=== PATIENT | female | born 1950 | race Caucasian/White ===

== ENCOUNTER 2016-09-17 20:06 | Inpatient (IN) ==
[2016-09-17] MEDS ORDERED: *HR* Morphine 2 MG/ML SYRINGE IVP ONE ×2 (20:27→22:30)
[2016-09-17] MEDS ORDERED: Ondansetron 4 MG/2 ML VIAL IVP ONE ×2 (20:27→22:30)
--- NOTE | 2016-09-17 20:28 | Emergency Department Note ---
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 She has had some nausea but no vomiting she had marked decrease in her by mouth intake the last several days. She had 1 prior episode of bowel obstruction several years ago that was treated with being nothing by mouth and fluids Pt Subjective Complaint: abdominal pain Onset (ago): day(s) (3) Consistency: intermittent Location: diffuse Pain Severity: moderate Pain Scale: 8 Quality: stabbing, sharp Improves with: nothing Worsens with: nothing Associated symptoms: Reports: nausea. Denies: fever, chills Treatments prior to arrival: none - Related Data Home Medications Medication Instructions Recorded Confirmed Amitiza 12/27/14 12/27/14 Effexor 12/27/14 12/27/14 Gabapentin 12/27/14 12/27/14 MiraLAX 12/27/14 12/27/14 Viola 5-325 Tablet QID 12/27/14 12/27/14 Prevacid 12/27/14 12/27/14 Singulair 12/27/14 12/27/14 Synthroid 12/27/14 12/27/14 Voltaren 12/27/14 12/27/14 Previous Rx's Medication Instructions Recorded OxyCODONE/APAP 7.5/325 [Percocet 1 each PO Q6HR PRN #12 tablet 12/27/14 7.5/325] Metoclopramide [Reglan] 10 mg PO Q6HR #90 tablet 03/08/15 Allergies Allergy/AdvReac Type Severity Reaction Status Date / Time ciprofloxacin [From Cipro] AdvReac Rash Verified 03/05/15 12:08 All systems ED: reviewed and negative except as stated. Constitutional: Denies: fever Respiratory: Denies: dyspnea Abdominal Pain PMH - Past Medical History Medical history: Reports: kidney stones, other Female Surgical History: Reports: other Psychiatric history: Reports: anxiety - Social History Smoking status: Never smoker Alcohol use: Reports: occasionally Drug use: Reports: none Physical Exam - General Limitations: no limitations General appearance: alert, in no apparent distress - Head Head exam: atraumatic, normocephalic, normal inspection - Eye Eye exam: Present: normal appearance, PERRL, EOMI - Expanded Eye Exam Pupils: Left: reactive - ENT ENT exam: normal exam, normal oropharynx, mucous membranes moist - Expanded ENT Exam External ear exam: Present: normal external inspection Mouth exam: Present: normal external inspection Teeth exam: Present: normal inspection Throat exam: Present: normal inspection - Neck Neck exam: Present: normal inspection, full ROM, trachea midline - Chest Chest inspection: Present: normal inspection, symmetric chest wall rise - Respiratory Respiratory exam: Present: normal lung sounds bilaterally - Cardiovascular Cardiovascular exam: Present: regular rate, normal rhythm, normal heart sounds - Abdominal Exam Abdominal exam: Present: distention, guarding, normal bowel sounds Abdominal tenderness: Present: diffuse, moderate - Rectal Exam Bariatric Surgeon present during exam: Yes Rectal exam: Present: normal inspection, normal rectal tone. Absent: bloody stool, fecal impaction, hemorrhoids - Extremities Exam Extremities exam: Present: normal inspection, full ROM. Absent: tenderness, pedal edema - Expanded Upper Extremity Exam Shoulder exam: Present: normal inspection, full ROM Arm exam: Present: normal inspection, full ROM Elbow exam: Present: normal inspection, full ROM Forearm/Wrist exam: Present: normal inspection, full ROM Hand exam: Present: normal inspection, full ROM Vascular exam: Normal: capillary refill, radial pulse - Expanded Lower Extremity Exam Hip/Pelvis exam: Present: normal inspection, full ROM Upper leg exam: Present: normal inspection, full ROM Knee exam: Present: normal inspection, full ROM Lower leg exam: Present: normal inspection, full ROM Ankle exam: Present: normal inspection, full ROM Foot/toe exam: Present: normal inspection, full ROM Neurovascular/Tendon exam: Absent: motor deficit, sensory deficit, tendon deficit - Back Exam Back exam: Present: normal inspection, full ROM. Absent: tenderness - Neurological Exam Neurological exam: Present: alert, oriented X3 - Expanded Neurological Exam Patient oriented to: Present: person, place, time Coma Scale Eye Opening: Spontaneous Coma Scale Motor Response: Obeys Commands Coma Scale Verbal Response: Oriented Coma Scale Total: 15 - Psychiatric Psychiatric exam: Present: normal affect, normal mood - Skin Skin exam: Present: warm, dry, intact, normal color Course - Consultations Consultation #1: recommends nothing by mouth, IV fluids analgesia and antiemetics NG tube only if patient starts actively vomiting pill C the patient consultation and admitted to the hospitalist service Time: 21:43 Vital Signs Temperature 98.3 F 09/17/16 20:07 Pulse Rate 122 09/17/16 20:07 Respiratory Rate 18 09/17/16 20:07 Blood Pressure 140/82 09/17/16 20:07 O2 Sat by Pulse Oximetry 95 09/17/16 20:07 Temperature 98.3 F 09/17/16 20:07 Pulse Rate 106 09/17/16 21:01 Respiratory Rate 20 09/17/16 21:01 Blood Pressure 108/76 09/17/16 21:01 O2 Sat by Pulse Oximetry 95 09/17/16 21:01 Oxygen Delivery Oxygen Delivery Room Air Abdominal Pain - Differential Diagnosis Differential Diagnosis: Likely: calculus of kidney, constipation, diverticulitis , gastroenteritis, small bowel obstruction - Medical Records Medical records reviewed: Yes I reviewed the patient's medical records. - Lab Data Result diagrams: 09/17/16 20:48 09/17/16 20:48 Lab Results 09/17/16 09/17/16 09/17/16 Range/Units 20:48 20:48 20:48 WBC 5.5 (4.3-11.1) K/mcL RBC 5.36 H (3.82-4.97) M/mcL Hgb 11.8 (11.5-15.4) g/dL Hct 39.0 (35.3-44.9) % MCV 72.8 L (83.0-100.0) fL MCH 22.0 L (28.0-33.3) pg MCHC 30.3 L (31.6-35.5) g/dL RDW 16.0 H (11.5-14.5) % Plt Count 345 (140-400) K/mcL MPV 9.1 L (9.4-12.4) fL Immature Gran % 0.2 (0-4) % Seg Neutrophils % 71.9 % Lymphocytes % 11.4 % Monocytes % 14.1 % Eosinophils % 2.0 % Basophils % 0.4 % Neutrophils # 4.0 (1.6-8.9) K/mcL Lymphocytes # 0.6 (0.6-4.6) K/mcL Monocytes # 0.8 (0.0-1.3) K/mcL Eosinophils # 0.1 (0.0-0.6) K/mcL Basophils # 0.0 (0.0-0.2) K/mcL Platelet Estimate Normal (Normal) PT 13.7 H (9.4-12.1) Seconds INR 1.3 Sodium 139 (136-145) mEq/L Potassium 3.8 (3.5-4.5) mEq/L Chloride 101 (98-109) mEq/L Carbon Dioxide 23 (19-29) mEq/L BUN 13 (7-20) mg/dL Creatinine 0.85 (0.57-1.11) mg/dL Est GFR ( Amer) > 60 (> 60) Est GFR (Non-Af Amer) > 60 (> 60) BUN/Creatinine Ratio 15 (6-26) Glucose 133 H (70-99) mg/dL Calculated Osmolality 290 (280-300) Lactic Acid (0.5-2.2) mmol/L Calcium 9.8 (8.6-10.8) mg/dL Total Bilirubin (0.2-1.2) mg/dL Direct Bilirubin (0.0-0.5) mg/dL Indirect Bilirubin (0.0-1.2) mg/dL AST (5-34) Units/L ALT (0-55) Units/L Alkaline Phosphatase (38-126) Units/L Serum Total Protein (6.0-8.3) g/dL Albumin (3.5-5.0) g/dL Globulin (2.4-3.5) g/dL Albumin/Globulin Ratio (1.1-2.2) Lipase (8-78) Units/L 09/17/16 09/17/16 Range/Units 20:48 20:48 WBC (4.3-11.1) K/mcL RBC (3.82-4.97) M/mcL Hgb (11.5-15.4) g/dL Hct (35.3-44.9) % MCV (83.0-100.0) fL MCH (28.0-33.3) pg MCHC (31.6-35.5) g/dL RDW (11.5-14.5) % Plt Count (140-400) K/mcL MPV (9.4-12.4) fL Immature Gran % (0-4) % Seg Neutrophils % % Lymphocytes % % Monocytes % % Eosinophils % % Basophils % % Neutrophils # (1.6-8.9) K/mcL Lymphocytes # (0.6-4.6) K/mcL Monocytes # (0.0-1.3) K/mcL Eosinophils # (0.0-0.6) K/mcL Basophils # (0.0-0.2) K/mcL Platelet Estimate (Normal) PT (9.4-12.1) Seconds INR Sodium (136-145) mEq/L Potassium (3.5-4.5) mEq/L Chloride (98-109) mEq/L Carbon Dioxide (19-29) mEq/L BUN (7-20) mg/dL Creatinine (0.57-1.11) mg/dL Est GFR ( Amer) (> 60) Est GFR (Non-Af Amer) (> 60) BUN/Creatinine Ratio (6-26) Glucose (70-99) mg/dL Calculated Osmolality (280-300) Lactic Acid 2.9 H (0.5-2.2) mmol/L Calcium (8.6-10.8) mg/dL Total Bilirubin 0.8 (0.2-1.2) mg/dL Direct Bilirubin 0.4 (0.0-0.5) mg/dL Indirect Bilirubin 0.4 (0.0-1.2) mg/dL AST 16 (5-34) Units/L ALT 14 (0-55) Units/L Alkaline Phosphatase 123 (38-126) Units/L Serum Total Protein 7.5 (6.0-8.3) g/dL Albumin 3.7 (3.5-5.0) g/dL Globulin 3.8 H (2.4-3.5) g/dL Albumin/Globulin Ratio 1.0 L (1.1-2.2) Lipase 11 (8-78) Units/L - Radiology Data Radiology results reviewed: Yes I reviewed the patient's radiology results.
[2016-09-17 20:55] LABS: Basophils % 0.4 %; Eosinophils # 0.1 K/mcL (0.0-0.6); Hemoglobin 11.8 g/dL (11.5-15.4); Immature Granulocytes % 0.2 % (0-4); Lymphocytes # 0.6 K/mcL (0.6-4.6); Lymphocytes % 11.4 %; Mean Corpuscular HGB Conc 30.3 g/dL (31.6-35.5); Mean Corpuscular Volume 72.8 fL (83.0-100.0); Mean Platelet Volume 9.1 fL (9.4-12.4); Monocytes # 0.8 K/mcL (0.0-1.3); Monocytes % 14.1 %; Platelet Count 345 K/mcL (140-400); Red Blood Count 5.36 M/mcL (3.82-4.97); Segmented Neutrophils % 71.9 %
[2016-09-17 21:00] LABS: INR 1.3; Prothrombin Time 13.7 Seconds (9.4-12.1)
[2016-09-17 21:07] LABS: BUN/Creatinine Ratio 15 (6-26); Blood Urea Nitrogen 13 mg/dL (7-20); Calcium 9.8 mg/dL (8.6-10.8); Carbon Dioxide 23 mEq/L (19-29); Chloride 101 mEq/L (98-109); Glucose 133 mg/dL (70-99); Osmolality,Calculated 290 (280-300); Potassium 3.8 mEq/L (3.5-4.5); Sodium 139 mEq/L (136-145); eGFR For African Americans > 60 (> 60); eGFR For Non-African Americans > 60 (> 60)
[2016-09-17 21:10] LABS: Albumin 3.7 g/dL (3.5-5.0); Bilirubin,Direct 0.4 mg/dL (0.0-0.5); Bilirubin,Indirect 0.4 mg/dL (0.0-1.2); Bilirubin,Total 0.8 mg/dL (0.2-1.2); Globulin 3.8 g/dL (2.4-3.5); Total Protein 7.5 g/dL (6.0-8.3)
[2016-09-17 21:18] LABS: Platelet Estimate Normal (Normal)
[2016-09-17] MEDS ORDERED: 0.9 % Sodium Chloride 1,000 ML IVC ONE (21:36)
[2016-09-17] MEDS ORDERED: Acetaminophen 325 MG TABLET PO PRN (22:40)
[2016-09-17] MEDS ORDERED: Naloxone 0.4 MG/ML INJ IVP PRN (22:40)
[2016-09-17] MEDS ORDERED: *HR* Morphine 2 MG/ML SYRINGE ONE (22:52)
[2016-09-17] MEDS ORDERED: Ondansetron 4 MG/2 ML VIAL ONE (22:53)
--- NOTE | 2016-09-17 23:36 | Internal Med History&Physical ---
Date of Encounter: 09/17/16 Time of Encounter: 23:00 Assessment and Plan (1) Small bowel obstruction Current visit: Yes Status: Acute Patient has a history of prior bowel surgeries 2. She also has a history of hysterotomy. She has a history of small bowel obstruction in the past which resolved after 4 days with conservative management. She presents with sudden onset about pain that started Friday with absence of bowel movements, nausea. Exam reveals absence of bowel sounds and tenderness to palpation without rebound tenderness. CT scan reveals small bowel obstruction with possible twisting of the mesentery. Surgery was consulted by the ER and it was recommended that the patient be admitted with conservative management. Patient will be admitted to inpatient status. Expected to be in the hospital at least overnight. Expected discharge disposition is to home. High risk due to possible need for surgical intervention if the patient fails conservative management. Nothing by mouth. Intravenous fluids. Intravenous proton pump inhibitors. Pain control. We will follow up surgery consult and recommendations. Internal Medicine - H&P: HPI Chief complaint: Abdominal pain Admitted From: Emergency Dept Plans for Post Hospital Care: Home History of present illness: Ms. 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 Patient states that she had sudden onset abdominal pain on Friday of for about 10/10 in intensity in the lower abdomen in the midline which was cramping and squeezing in nature without any radiation. The pain was intermittent. No aggravating or relieving factors. She has not had a bowel movement since Friday. Pain is associated with nausea but no vomiting. She states that she usually does not pass gas. Hence, she presented to the emergency department. Currently, she rates her pain as 5/10 in intensity after receiving morphine in the emergency department. She reports feeling lightheaded when she gets up and walks. She denies any chest pain, palpitations, cough or wheezing. She denies any fevers although she reports some chills. She denies any swelling of her lower extremities, urinary symptoms or recent weight changes. She states that she usually moves her bowels about 5-6 times daily as she does not have a colon. She states that she usually consumes MiraLAX. She states that she had small bowel obstruction one year ago. Hence, when the pain started on Friday, she stopped taking any food but was only taking MiraLAX to try to move her bowels. Past Med Surg Social Fam HX - Past Medical History Attestation: Yes The following information was validated with the patient. Source: patient Medical history: GERD, kidney stones Psychiatric history: anxiety - Past Surgical History Surgical History: colectomy, hip replacement, hysterectomy, other (shoulder surgery; Small intestine surgery) - Social History Smoking Status: Never smoker Smokeless Tobacco Status: No Alcohol use: occasionally Drug use: none Occupational status: employed Current living situation: Home, With Family Activity Level: Independent ambulation Recent Out of Country Travel Within the Last 8 Weeks: No Exposure or Possible Exposure to Illness During Travel: No - Family History Mother Living Status: Hx Family GI Disorders: No Hx Family Autoimmune Disorders: No Father Hx Family GI Disorders: No Hx Family Endocrine Disorder: No Internal Medicine - H&P: Meds Albuterol Sulfate [Albuterol Inhaler] 2 puff IH Q4H PRN 09/17/16 [History] Diclofenac Sodium [Voltaren] 75 mg PO BID 09/17/16 [History] Gabapentin [Neurontin] 300 mg PO TID 09/17/16 [History] Hyoscyamine SL [Levsin SL] 0.125 mg SL TID PRN 09/17/16 [History] Lansoprazole [Prevacid] 30 mg PO DAILY 09/17/16 [History] Levothyroxine [Synthroid] 112 mcg PO 30 09/17/16 [History] Lidocaine Patch [Lidoderm 5% patch] 1 each TP DAILY PRN 09/17/16 [History] Lubiprostone [Amitiza] 8 mcg PO BID 09/17/16 [History] Montelukast [Singulair] 10 mg PO HS 09/17/16 [History] OxyCODONE/APAP 7.5/325 [Percocet 7.5/325 MG] 1 tab PO Q6H PRN 09/17/16 [History] Polyethylene Glycol 3350 [Smoothlax] 17 gm PO BID PRN 09/17/16 [History] Rifaximin [Xifaxan] 550 mg PO BID 09/17/16 [History] Venlafaxine XR (24 HR) [Effexor Xr] 37.5 mg PO DAILY 09/17/16 [History] Allergies ciprofloxacin [From Cipro] Adverse Reaction (Verified 03/05/15 12:08) Rash All Systems PM: A 10-system review of systems was performed and is negative for pertinent findings except as documented above in the HPI. Review of systems: 10 systems have been reviewed and are negative except as mentioned in the history of present illness - Constitutional Vitals: Temp Pulse Resp BP Pulse Ox 98.3 F 97 20 133/94 94 09/17/16 20:07 09/17/16 22:45 09/17/16 22:45 09/17/16 22:45 09/17/16 22:45 Exam: Gen.: Lying in bed. Mild to moderate distress. Eyes: Pupils equal, round and reactive to light. Extraocular muscles intact. ENT: Moist mucous membranes. No oropharyngeal erythema or discharge. Chest: Clear to auscultation bilaterally. No adventitious sounds present. CVS: First and second heart sounds present. No murmurs, rubs or gallops. Mild tachycardia present. Abdomen: Soft, tenderness to palpation in the hypogastric and left lumbar regions without rebound tenderness, guarding or rigidity; obese. Bowel sounds absent. No hepatosplenomegaly. Skin: No decubitus ulcers appreciated. 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 Psychiatric: Alert, awake and oriented to time, place and person. Lymphatic system: No lymphadenopathy appreciated Internal Med - H&P Results - Labs CBC & Chem 7: 09/17/16 20:48 09/17/16 20:48 - Diagnostic Studies CT scan - abdomen Status: image reviewed by me
[2016-09-17] MEDS ORDERED: Potassium Chloride 10 MEQ in D5% in 0.9% NACL 1,000 ML IVC SCH (23:45)
[2016-09-18] MEDS: *HR* Heparin 5,000 UNIT/ML VIAL SQ SCH ×3 (00:37→16:36)
[2016-09-18] MEDS: *HR* Morphine 2 MG/ML SYRINGE IVP PRN ×4 (02:09→16:57)
[2016-09-18 06:03] LABS: Eosinophils # 0.1 K/mcL (0.0-0.6); Hematocrit 33.6 % (35.3-44.9); Lymphocytes # 0.8 K/mcL (0.6-4.6); Mean Corpuscular HGB Conc 29.8 g/dL (31.6-35.5); Mean Corpuscular Hemoglobin 21.9 pg (28.0-33.3); Mean Corpuscular Volume 73.7 fL (83.0-100.0); Mean Platelet Volume 9.3 fL (9.4-12.4); Nucleated Red Blood Cells 0.7 /100 WBC (0); Platelet Count 283 K/mcL (140-400); Red Blood Count 4.56 M/mcL (3.82-4.97); Red Cell Distribution Width 16.1 % (11.5-14.5)
[2016-09-18 06:12] LABS: % Iron Saturation 7 % (15-50); BUN/Creatinine Ratio 14 (6-26); Blood Urea Nitrogen 11 mg/dL (7-20); Calcium 8.7 mg/dL (8.6-10.8); Carbon Dioxide 25 mEq/L (19-29); Chloride 107 mEq/L (98-109); Glucose 113 mg/dL (70-99); Iron 33 mcg/dL (50-170); Osmolality,Calculated 290 (280-300); Potassium 4.1 mEq/L (3.5-4.5); Sodium 140 mEq/L (136-145); Transferrin 354 mg/dL (180-382); eGFR For African Americans > 60 (> 60); eGFR For Non-African Americans > 60 (> 60)
[2016-09-18 06:23] LABS: Anisocytosis 1+ (Not Present); Microcytosis Present (Not Present); Monocytes # 0.6 K/mcL (0.0-1.3); Neutrophils # 2.7 K/mcL (1.6-8.9); Platelet Estimate Normal (Normal); Reactive Lymphocytes Present (Not Present)
[2016-09-18 06:36] LABS: Ferritin 106 ng/ml (5-204)
--- NOTE | 2016-09-18 08:19 | General Surgery Progress Note ---
Date of Encounter: 09/18/16 - Assessment and Plan (1) Small bowel obstruction Current Visit: Yes Status: Acute Multiple abdominal surgeries and history of small bowel obstructions in the past. Patient had been treating herself conservatively at home over the past 4 days drinking water and taking only a few bites of pudding a day. Patient has had multiple voluminous bowel movements today for bowel movements just prior to physical examination. Patient then got up to have another bowel movement. Patient denies nausea or vomiting. She does have active bowel sounds. Patient states that she does not have gas passage due to her Hirschsprung's disease gas only comes out when she stools this is her normal function. Abdomen/Pelvis CT 09/17/16 20:19 IMPRESSION: Findings compatible with small-bowel obstruction likely secondary to adhesions of the anastomotic site with associated twisting of the mesentery. Recommend surgical consultation. No acute abnormality otherwise noted. Plan: Partial SBO Clears today will advance as patient tolerates IV fluids at [75] mL per hour Supportive care and pain control Incentive spirometer every 1 hour while awake PPI therapy Surgery will follow along. Advance diet as tolerated. The assessment and plan as outlined above was discussed with the patient and/or family members who expressed understanding and agreement. All questions were answered. Objective Vital Signs - Last 8 Hours Temp Pulse Resp BP Pulse Ox 09/18/16 07:12 99.4 F 103 20 117/71 94 09/18/16 03:22 98.7 F 100 15 121/75 93 09/18/16 00:31 98.1 F 94 15 124/75 93 Intake and Output 09/17/16 09/18/16 09/18/16 23:59 07:59 15:59 Output Total 100 / 100 Balance -100 / -100 Output: Urine 100 / 100 Other: Stool Size Copious Stool Consistency liquid Stool Color Brown Yellow Green Pale # Voids 1 # Bowel Movements 1 Weight 93.3 kg Blood Glucose* 103 Patient Weight 09/18/16 23:59 Weight 93.3 kg - Labs 09/18/16 05:46 09/18/16 05:46 Diabetes panel 09/18/16 Range/Units 05:46 Sodium 140 (136-145) mEq/L Potassium 4.1 (3.5-4.5) mEq/L Chloride 107 (98-109) mEq/L Carbon Dioxide 25 (19-29) mEq/L BUN 11 (7-20) mg/dL Creatinine 0.77 (0.57-1.11) mg/dL Glucose 113 H (70-99) mg/dL Calcium 8.7 (8.6-10.8) mg/dL Calcium panel 09/18/16 Range/Units 05:46 Calcium 8.7 (8.6-10.8) mg/dL Pituitary panel 09/18/16 Range/Units 05:46 Sodium 140 (136-145) mEq/L Potassium 4.1 (3.5-4.5) mEq/L Chloride 107 (98-109) mEq/L Carbon Dioxide 25 (19-29) mEq/L BUN 11 (7-20) mg/dL Creatinine 0.77 (0.57-1.11) mg/dL Glucose 113 H (70-99) mg/dL Calcium 8.7 (8.6-10.8) mg/dL Adrenal panel 09/18/16 Range/Units 05:46 Sodium 140 (136-145) mEq/L Potassium 4.1 (3.5-4.5) mEq/L Chloride 107 (98-109) mEq/L Carbon Dioxide 25 (19-29) mEq/L BUN 11 (7-20) mg/dL Creatinine 0.77 (0.57-1.11) mg/dL Glucose 113 H (70-99) mg/dL Calcium 8.7 (8.6-10.8) mg/dL Consult Discharge Plan - Plan Referrals: Ortega Elias Jr, MD [Primary Care Provider] -
[2016-09-18] MEDS: Pantoprazole 40 MG VIAL IVP SCH (08:37)
--- NOTE | 2016-09-18 09:40 | General Surgery Consult Note ---
<RogerRehanAleksander M - Last Filed: 09/18/16 12:42> Date of Encounter: 09/18/16 Medications and Allergies Albuterol Sulfate [Albuterol Inhaler] 2 puff IH Q4H PRN 09/17/16 [History] Diclofenac Sodium [Voltaren] 75 mg PO BID 09/17/16 [History] Gabapentin [Neurontin] 300 mg PO TID 09/17/16 [History] Hyoscyamine SL [Levsin SL] 0.125 mg SL TID PRN 09/17/16 [History] Lansoprazole [Prevacid] 30 mg PO DAILY 09/17/16 [History] Levothyroxine [Synthroid] 112 mcg PO 0630 09/17/16 [History] Lidocaine Patch [Lidoderm 5% patch] 1 each TP DAILY PRN 09/17/16 [History] Lubiprostone [Amitiza] 8 mcg PO BID 09/17/16 [History] Montelukast [Singulair] 10 mg PO HS 09/17/16 [History] OxyCODONE/APAP 7.5/325 [Percocet 7.5/325 MG] 1 tab PO Q6H PRN 09/17/16 [History] Polyethylene Glycol 3350 [Smoothlax] 17 gm PO BID PRN 09/17/16 [History] Rifaximin [Xifaxan] 550 mg PO BID 09/17/16 [History] Venlafaxine XR (24 HR) [Effexor Xr] 37.5 mg PO DAILY 09/17/16 [History] Allergies ciprofloxacin [From Cipro] Adverse Reaction (Verified 03/05/15 12:08) Rash Review of Systems All systems PM: A 10-system review of systems was performed and is negative for pertinent findings except as documented above in the HPI. General Surgery Exam Initial Vital Signs Temp Pulse Resp BP Pulse Ox 98.3 F 122 18 140/82 95 09/17/16 20:07 09/17/16 20:07 09/17/16 20:07 09/17/16 20:07 09/17/16 20:07 Exam Initial Vital Signs Temp Pulse Resp BP Pulse Ox 98.3 F 122 18 140/82 95 09/17/16 20:07 09/17/16 20:07 09/17/16 20:07 09/17/16 20:07 09/17/16 20:07 Results - Labs 09/18/16 05:46 09/18/16 05:46 Abnormal lab results WBC 4.2 K/mcL (4.3-11.1) L 09/18/16 05:46 Hgb 10.0 g/dL (11.5-15.4) L D 09/18/16 05:46 Hct 33.6 % (35.3-44.9) L 09/18/16 05:46 MCV 73.7 fL (83.0-100.0) L 09/18/16 05:46 MCH 21.9 pg (28.0-33.3) L 09/18/16 05:46 MCHC 29.8 g/dL (31.6-35.5) L 09/18/16 05:46 RDW 16.1 % (11.5-14.5) H 09/18/16 05:46 MPV 9.3 fL (9.4-12.4) L 09/18/16 05:46 Band Neutrophils % 12.0 % (0-4) H 09/18/16 05:46 Nucleated RBCs/100 WBC 0.7 /100 WBC (0) H 09/18/16 05:46 Reactive Lymphocytes Present (Not Present) A 09/18/16 05:46 Anisocytosis 1+ (Not Present) A 09/18/16 05:46 Microcytosis Present (Not Present) A 09/18/16 05:46 PT 13.7 Seconds (9.4-12.1) H 09/17/16 20:48 Glucose 113 mg/dL (70-99) H 09/18/16 05:46 POC Glucose 124 (58-89) H 09/18/16 08:36 Lactic Acid 2.9 mmol/L (0.5-2.2) H 09/17/16 20:48 Iron 33 mcg/dL (50-170) L 09/18/16 05:46 % Saturation 7 % (15-50) L 09/18/16 05:46 Globulin 3.8 g/dL (2.4-3.5) H 09/17/16 20:48 Albumin/Globulin Ratio 1.0 (1.1-2.2) L 09/17/16 20:48 Diabetes panel 09/18/16 Range/Units 05:46 Sodium 140 (136-145) mEq/L Potassium 4.1 (3.5-4.5) mEq/L Chloride 107 (98-109) mEq/L Carbon Dioxide 25 (19-29) mEq/L BUN 11 (7-20) mg/dL Creatinine 0.77 (0.57-1.11) mg/dL Glucose 113 H (70-99) mg/dL Calcium 8.7 (8.6-10.8) mg/dL Calcium panel 09/18/16 Range/Units 05:46 Calcium 8.7 (8.6-10.8) mg/dL Pituitary panel 09/18/16 Range/Units 05:46 Sodium 140 (136-145) mEq/L Potassium 4.1 (3.5-4.5) mEq/L Chloride 107 (98-109) mEq/L Carbon Dioxide 25 (19-29) mEq/L BUN 11 (7-20) mg/dL Creatinine 0.77 (0.57-1.11) mg/dL Glucose 113 H (70-99) mg/dL Calcium 8.7 (8.6-10.8) mg/dL Adrenal panel 09/18/16 Range/Units 05:46 Sodium 140 (136-145) mEq/L Potassium 4.1 (3.5-4.5) mEq/L Chloride 107 (98-109) mEq/L Carbon Dioxide 25 (19-29) mEq/L BUN 11 (7-20) mg/dL Creatinine 0.77 (0.57-1.11) mg/dL Glucose 113 H (70-99) mg/dL Calcium 8.7 (8.6-10.8) mg/dL All other labs normal. Consult Discharge Plan - Plan Referrals: Ortega Elias Jr, MD [Primary Care Provider] - - Attending Attestation I examined this patient and my medical decision-making was reviewed with the TRIM SETTER HELPER/PA/Advanced Practice Nurse/Resident Physician. I agree with the documented findings, disposition and treatment plan as described except to the extent set forth below. I reviewed the above-mentioned assessment and evaluation and agree with the above plan. Patient has had episodes of abdominal distention with nausea and no bowel movement in the past due to her previous abdominal surgeries due to adhesions. She states currently her abdominal discomfort has significantly improved though she still has some occasional pain. She has mild pain to moderate palpation and mild tympany. She has been having bowel movements this morning and yesterday evening and I agree with advancement to liquids. To consider further advancement she continues to do well over the next 24 hours. <Barbara Laboy - Last Filed: 09/19/16 09:38> Date of Encounter: 09/19/16 Time of Encounter: 08:00 Assessment and Plan (1) Partial small bowel obstruction Current Visit: Yes Status: Acute Multiple abdominal surgeries and history of small bowel obstructions in the past. Patient had been treating herself conservatively at home over the past 4 days drinking water and taking only a few bites of pudding a day. Patient has had multiple voluminous bowel movements today for bowel movements just prior to physical examination. Patient then got up to have another bowel movement. Patient denies nausea or vomiting. She does have active bowel sounds. Patient states that she does not have gas passage due to her Hirschsprung's disease gas only comes out when she stools this is her normal function. Abdomen/Pelvis CT 09/17/16 20:19 IMPRESSION: Findings compatible with small-bowel obstruction likely secondary to adhesions of the anastomotic site with associated twisting of the mesentery. Recommend surgical consultation. No acute abnormality otherwise noted. Plan: Partial SBO Clears today will advance as patient tolerates IV fluids at [75] mL per hour Supportive care and pain control Incentive spirometer every 1 hour while awake PPI therapy Surgery will follow along. Advance diet as tolerated. The assessment and plan as outlined above was discussed with the patient and/or family members who expressed understanding and agreement. All questions were answered. History of Present Illness Consult date: 09/18/16 Reason for consult: abdominal pain Requesting physician: Asim Joshi History of present illness: Mrs. Leblanc is a 66 year old Female with a past medical history of Hirschsprung's disease with multiple abdominal surgeries, small bowel obstructions with previous resection due to necrotic bowel, who is being evaluated for abdominal pain. On Friday, 6 days ago she developed sharp midepigastric pain that was unrelenting 9/10 pain and diffusely tender abdomen similar to prior SBO in past. Patient had been treating herself conservatively at home over the past 4 days drinking only water and taking a few bites of pudding a day as she has had small bowel obstructions in the past and conservative management has alleviated them. Patient states that she has a history of retaining stool for many days/constipation with episodes of large volumes of stool being evacuated all of once. Patient states she "has bowel issues "her whole life including spasms, Hirschsprung's and constipation. Symptoms exacerbated with movement alleviated by laying still. Associated symptoms include abdominal bloating, nausea. Last BM reported prior to admission was described as large volume of watery stool per her normal. On physical examination today patient had diffusely tender abdomen that feels better today than on admission, reported multiple voluminous watery bowel movements, denies bloating, nausea or vomiting, no rebound, rigidity, guarding. Vitals stable. Afebrile. Patient reports that she is hungry and would like to have a trial of clear liquids today. CT scan demonstrates small bowel obstruction with possible twisting of mesentery. Past surgical histories: 1961 umbilical hernia repair 1977 ileal proctectomy/appendectomy 1994 maxillofacial sinus surgery 1997 small bowel resection due to necrotic bowel from small bowel obstruction Age 48 hysterectomy and oophorectomy 2015 left shoulder arthroplasty 2016 right knee arthroplasty 2017 left hip arthroplasty Age 20 adenoids and tonsils Past Med Surg Social Fam HX - Past Medical History Medical history: GERD, kidney stones Psychiatric history: anxiety - Past Surgical History Surgical History: colectomy, hip replacement, hysterectomy, knee replacement, other - Social History Smoking Status: Never smoker Smokeless Tobacco Status: No Alcohol use: occasionally Drug use: none - Family History Mother Living Status: Cause of : Parkisons Hx Family GI Disorders: No Hx Family Neuromuscular Disorders: Yes (Dementia, Parkisons) Hx Family Autoimmune Disorders: No Father Living Status: Cause of : Hemocromytosis Hx Family GI Disorders: No Hx Family Endocrine Disorder: No Review of Systems All systems PM: A 10-system review of systems was performed and is negative for pertinent findings except as documented above in the HPI. - Constitutional no anorexia, no chills, no fatigue, no fever(s), no weakness - EENT Nose, mouth and throat: dry mouth, no disequilibrium, no dizziness, no dysphagia , no neck mass, no neck pain, no throat swelling, no tongue swelling - Cardiovascular no chest pain, no claudication, no diaphoresis, no dyspnea, no edema, no palpitations - Gastrointestinal abdominal pain, bloating, cramping, heartburn, loose stools (per her normal stool), no coffee ground emesis, no dyspepsia, no dysphagia, no excessive flatus , no hematemesis, no hematochezia, no melena, no nausea, no vomiting - Genitourinary Genitourinary: no hematuria, no pelvic pain - Musculoskeletal arthralgias - Integumentary no pruritus, no rash, no jaundice - Neurological no confusion, no headache(s), no lack of coordination, no syncope - Psychiatric no behavioral changes, no irritability - Endocrine no flushing, no palpitations, no polyuria - Hematologic/Lymphatic no easy bleeding, no easy bruising, no lymphadenopathy - Allergic/Immunologic no tongue swelling, no throat swelling, no wheezing General Surgery Exam Initial Vital Signs Temp Pulse Resp BP Pulse Ox 98.3 F 122 18 140/82 95 09/17/16 20:07 09/17/16 20:07 09/17/16 20:07 09/17/16 20:07 09/17/16 20:07 - General physical appearance well developed, well nourished, moderate distress, moderate pain, obese - Eyes PERRL, normal ocular movement - ENT normal pinna, normal nares, normal mucosa, atraumatic, normocephalic, CN 2-12 grossly intact - Neck no masses, trachea midline, no venous distension - Respiratory normal expansion, normal respiratory effort, clear to auscultation - Cardiovascular Cardiovascular exam: Present: RRR, no murmurs/rubs/gallops. Absent: JVD - Abdomen Abdomen general surgery: Present: bowel sounds present, soft, tender Abdominal Tenderness: Present: diffusely - Integumentary Integumentary general surgery: Present: warm and dry, no abnormal pigmentation. Absent: diaphoresis, rash - Neurologic Present: CN 2-12 grossly intact, normal coordination, normal sensation - Musculoskeletal Present: normal gait, normal posture - Psychiatric Psychiatric general surgery: Present: A&Ox3, appropriate, speech is normal, memory intact Exam Initial Vital Signs Temp Pulse Resp BP Pulse Ox 98.3 F 122 18 140/82 95 09/17/16 20:07 09/17/16 20:07 09/17/16 20:07 09/17/16 20:07 09/17/16 20:07 Results - Labs 09/19/16 04:46 09/19/16 04:46 Abnormal lab results WBC 4.2 K/mcL (4.3-11.1) L 09/18/16 05:46 Hgb 10.0 g/dL (11.5-15.4) L D 09/18/16 05:46 Hct 33.6 % (35.3-44.9) L 09/18/16 05:46 MCV 73.7 fL (83.0-100.0) L 09/18/16 05:46 MCH 21.9 pg (28.0-33.3) L 09/18/16 05:46 MCHC 29.8 g/dL (31.6-35.5) L 09/18/16 05:46 RDW 16.1 % (11.5-14.5) H 09/18/16 05:46 MPV 9.3 fL (9.4-12.4) L 09/18/16 05:46 Band Neutrophils % 12.0 % (0-4) H 09/18/16 05:46 Nucleated RBCs/100 WBC 0.7 /100 WBC (0) H 09/18/16 05:46 Reactive Lymphocytes Present (Not Present) A 09/18/16 05:46 Anisocytosis 1+ (Not Present) A 09/18/16 05:46 Microcytosis Present (Not Present) A 09/18/16 05:46 PT 13.7 Seconds (9.4-12.1) H 09/17/16 20:48 Glucose 113 mg/dL (70-99) H 09/18/16 05:46 POC Glucose 124 (58-89) H 09/18/16 08:36 Lactic Acid 2.9 mmol/L (0.5-2.2) H 09/17/16 20:48 Iron 33 mcg/dL (50-170) L 09/18/16 05:46 % Saturation 7 % (15-50) L 09/18/16 05:46 Globulin 3.8 g/dL (2.4-3.5) H 09/17/16 20:48 Albumin/Globulin Ratio 1.0 (1.1-2.2) L 09/17/16 20:48 Diabetes panel 09/18/16 Range/Units 05:46 Sodium 140 (136-145) mEq/L Potassium 4.1 (3.5-4.5) mEq/L Chloride 107 (98-109) mEq/L Carbon Dioxide 25 (19-29) mEq/L BUN 11 (7-20) mg/dL Creatinine 0.77 (0.57-1.11) mg/dL Glucose 113 H (70-99) mg/dL Calcium 8.7 (8.6-10.8) mg/dL Calcium panel 09/18/16 Range/Units 05:46 Calcium 8.7 (8.6-10.8) mg/dL Pituitary panel 09/18/16 Range/Units 05:46 Sodium 140 (136-145) mEq/L Potassium 4.1 (3.5-4.5) mEq/L Chloride 107 (98-109) mEq/L Carbon Dioxide 25 (19-29) mEq/L BUN 11 (7-20) mg/dL Creatinine 0.77 (0.57-1.11) mg/dL Glucose 113 H (70-99) mg/dL Calcium 8.7 (8.6-10.8) mg/dL Adrenal panel 09/18/16 Range/Units 05:46 Sodium 140 (136-145) mEq/L Potassium 4.1 (3.5-4.5) mEq/L Chloride 107 (98-109) mEq/L Carbon Dioxide 25 (19-29) mEq/L BUN 11 (7-20) mg/dL Creatinine 0.77 (0.57-1.11) mg/dL Glucose 113 H (70-99) mg/dL Calcium 8.7 (8.6-10.8) mg/dL All other labs normal.
[2016-09-18] MEDS: D5% in 0.45% NACL 1,000 ML IVC SCH (12:53)
--- NOTE | 2016-09-18 14:39 | Internal Med Progress Note ---
Date of Encounter: 09/18/16 Time of Encounter: 09:00 - Assessment and plan (1) Small bowel obstruction Current Visit: Yes Status: Acute Assessment and plan: Improved after self treatment at home. Had a bowel movement yesterday and this morning. Surgical consult on case. Continue advancing diet as tolerated. (2) Hypothyroidism Current Visit: No Status: Chronic Assessment and plan: Continue home medications Qualifiers: Hypothyroidism type: unspecified Qualified Code(s): E03.9 - Hypothyroidism , unspecified (3) DVT prophylaxis Current Visit: No Status: Acute Assessment and plan: Hypertension subcutaneous - Time Spent With Patient 25 - 35 minutes - Subjective Interval history: Patient is a 66-year-old female admitted for small bowel obstruction. Past medical history is significant for GERD and kidney stone. Patient was seen and examined. She had bowel movements yesterday and this morning. Abdominal pain and distention has improved after bowel movement. Surgical consult appreciated. Place patient on clear liquid diet and advance diet as tolerated. - Constitutional Vitals: Temp Pulse Resp BP Pulse Ox 98.5 F 104 16 127/78 95 09/18/16 11:03 09/18/16 11:03 09/18/16 11:03 09/18/16 11:03 09/18/16 11:03 General appearance: Present: A&O X 3, no acute distress, answers questions appropriately - Head Head exam: Present: atraumatic, normocephalic - Eye Eye exam: Present: PERRL, conjuntiva pink, sclera anicteric Pupils: Present: PERRL - Neck Neck exam general surgery: Present: supple, trachea midline. Absent: lymphadenopathy - Respiratory Respiratory exam: Present: CTAB. Absent: accessory muscle use, rales, rhonchi, wheezes - Cardiovascular Cardiovascular exam: Present: RRR, +S1, +S2. Absent: diastolic murmur, gallop, rubs, systolic murmur - GI/Abdominal GI/Abdominal exam: Present: hyperactive bowel sounds, soft, no peritoneal signs. Absent: distended, tenderness - Extremities Exam Extremities exam: Present: warm, radial pulses palpable and symetrical. Absent : calf tenderness, cyanotic, pedal edema - Neurological Exam Neurological exam: Present: CN II-XII intact, oriented X3, no focal deficits. Absent: pronater drift, facial droop, speech deficit - Skin Skin exam: Present: dry, intact Internal Medicine: Result - Labs CBC & Chem 7: 09/18/16 05:46 09/18/16 05:46 Labs: Short CBC 09/18/16 Range/Units 05:46 WBC 4.2 L (4.3-11.1) K/mcL Hgb 10.0 L D (11.5-15.4) g/dL Hct 33.6 L (35.3-44.9) % Plt Count 283 (140-400) K/mcL Neutrophils # 2.7 (1.6-8.9) K/mcL BMP 09/18/16 05:46 Sodium 140 Potassium 4.1 Chloride 107 Carbon Dioxide 25 BUN 11 Creatinine 0.77 Glucose 113 H Calcium 8.7 - ABG Interpretation ABG results: PT/INR, D-dimer PT 13.7 Seconds (9.4-12.1) H 09/17/16 20:48 Consult Discharge Plan - Plan Referrals: Ortega Elias Jr, MD [Primary Care Provider] -
[2016-09-18] MEDS: Gabapentin 300 MG CAPSULE PO SCH ×2 (16:36→21:20)
[2016-09-18] MEDS: Diclofenac Sodium 75 MG TABLET PO SCH (21:20)
[2016-09-19] MEDS: *HR* Heparin 5,000 UNIT/ML VIAL SQ SCH ×4 (00:17→23:42)
[2016-09-19] MEDS: *HR* OxyCODONE/APAP 7.5/325 TABLET PO PRN ×3 (01:40→16:29)
[2016-09-19 05:37] LABS: Basophils % 0.7 %; Eosinophils # 0.3 K/mcL (0.0-0.6); Eosinophils % 6.6 %; Hematocrit 28.5 % (35.3-44.9); Hemoglobin 8.8 g/dL (11.5-15.4); Immature Granulocytes % 0.5 % (0-4); Lymphocytes % 22.1 %; Mean Corpuscular HGB Conc 30.9 g/dL (31.6-35.5); Mean Corpuscular Hemoglobin 22.9 pg (28.0-33.3); Mean Corpuscular Volume 74.2 fL (83.0-100.0); Mean Platelet Volume 10.2 fL (9.4-12.4); Monocytes # 0.6 K/mcL (0.0-1.3); Monocytes % 13.2 %; Neutrophils # 2.5 K/mcL (1.6-8.9); Platelet Count 255 K/mcL (140-400); Red Blood Count 3.84 M/mcL (3.82-4.97); Red Cell Distribution Width 16.3 % (11.5-14.5); Segmented Neutrophils % 56.9 %
[2016-09-19 06:03] LABS: BUN/Creatinine Ratio 12 (6-26); Blood Urea Nitrogen 8 mg/dL (7-20); Calcium 8.6 mg/dL (8.6-10.8); Carbon Dioxide 26 mEq/L (19-29); Chloride 108 mEq/L (98-109); Glucose 97 mg/dL (70-99); Osmolality,Calculated 288 (280-300); Potassium 3.1 mEq/L (3.5-4.5); Sodium 140 mEq/L (136-145); eGFR For African Americans > 60 (> 60); eGFR For Non-African Americans > 60 (> 60)
[2016-09-19 06:29] LABS: Platelet Estimate Normal (Normal)
[2016-09-19 06:30] LABS: Anisocytosis 1+ (Not Present)
[2016-09-19] MEDS: Pantoprazole 40 MG VIAL IVP SCH (09:14)
[2016-09-19] MEDS: Venlafaxine XR (24 HR) 37.5 MG CAP.ER.24H PO SCH (09:14)
[2016-09-19] MEDS: Diclofenac Sodium 75 MG TABLET PO SCH ×2 (09:14→21:01)
[2016-09-19] MEDS: Gabapentin 300 MG CAPSULE PO SCH ×3 (09:14→21:01)
[2016-09-19] MEDS: D5% in 0.45% NACL 1,000 ML IVC SCH (09:15)
[2016-09-19] MEDS ORDERED: D5% in 0.45% NACL w KCl 20 MEQ/1,000 ML MLS IVC SCH (09:30)
[2016-09-19] MEDS ORDERED: D5% in 0.45% NACL w KCl 20 MEQ/1,000 ML MLS IVC ONE (09:33)
--- NOTE | 2016-09-19 09:41 | General Surgery Progress Note ---
Date of Encounter: 09/20/16 Time of Encounter: 09:00 - Assessment and Plan (1) Partial small bowel obstruction Current Visit: Yes Status: Acute Patient has had multiple bowel movements more than 5 with air/gas passage. Patient is up and ambulating around the room. She is urinating without difficulty. Abdominal series will be performed to evaluate small bowel gas to correlate with clinical acute sympotoms of nausea and bloating. NPO except ice chips Supportive care and pain control Incentive spirometer every 1 hour while awake PPI therapy Chest/Abdomen X-ray 09/19/16 12:52 IMPRESSION: Increased distention of air-filled loops of small bowel throughout the abdomen evidence of underlying small bowel obstruction. Evaluate over next 24 hours for resolution. Will continue to follow. The assessment and plan as outlined above was discussed with the patient and/or family members who expressed understanding and agreement. All questions were answered. Subjective Patient reports: feels better, still having pain, tolerating liquids well, voiding w/o difficulty, flatus, bowel movement, afebrile Narrative: Patient was seen and examined. Patient states that she is feeling much better today however she still has diffuse tenderness of her abdomen that is mild compared to her admission. Patient states that she had 5 bowel movements yesterday as voluminous/watery stools with pockets of air/gas. patient says she tolerated her clear liquid diet yesterday, however, today she as developed sudden onset nausea. She has been ambulating daily and voiding without difficulty. Objective Vital Signs - Last 8 Hours Temp Pulse Resp BP Pulse Ox 09/19/16 07:37 97.6 F 78 18 107/73 96 Intake and Output 09/18/16 09/19/16 09/19/16 23:59 07:59 15:59 Intake Total 977 / 977 903 / 903 360 / 360 Output Total 150 / 150 0 / 0 Balance 827 / 827 903 / 903 360 / 360 Intake: IV Fluids 297 / 297 703 / 703 D5% And 0.45% Nacl 1000 297 / 297 703 / 703 Ml Bag 1,000 ML @ 60 mls/ hr IVC .[id number] [facility] Rx#: [id number] Oral 680 / 680 200 / 200 360 / 360 Output: Urine 150 / 150 0 / 0 Other: Weight 93.4 kg Patient Weight 09/19/16 23:59 Weight 93.4 kg - General physical appearance well developed, well nourished, no distress, moderate pain, obese - Eyes PERRL, normal ocular movement - ENT normal nares, normal mucosa, atraumatic, normocephalic, CN 2-12 grossly intact - Neck Neck exam: trachea midline - Respiratory normal expansion, normal respiratory effort, clear to auscultation - Cardiovascular Cardiovascular exam: Present: RRR, no murmurs/rubs/gallops. Absent: JVD - Abdomen Abdomen: Present: bowel sounds present, soft, tender Abdominal Tenderness: diffusely - Integumentary no rash, no abnormal pigmentation - Musculoskeletal normal gait, normal posture - Psychiatric oriented to time, oriented to person, oriented to place, speech is normal, memory intact - Labs 09/19/16 04:46 09/19/16 04:46 Diabetes panel 09/19/16 Range/Units 04:46 Sodium 140 (136-145) mEq/L Potassium 3.1 L D (3.5-4.5) mEq/L Chloride 108 (98-109) mEq/L Carbon Dioxide 26 (19-29) mEq/L BUN 8 (7-20) mg/dL Creatinine 0.69 (0.57-1.11) mg/dL Glucose 97 (70-99) mg/dL Calcium 8.6 (8.6-10.8) mg/dL Calcium panel 09/19/16 Range/Units 04:46 Calcium 8.6 (8.6-10.8) mg/dL Pituitary panel 09/19/16 Range/Units 04:46 Sodium 140 (136-145) mEq/L Potassium 3.1 L D (3.5-4.5) mEq/L Chloride 108 (98-109) mEq/L Carbon Dioxide 26 (19-29) mEq/L BUN 8 (7-20) mg/dL Creatinine 0.69 (0.57-1.11) mg/dL Glucose 97 (70-99) mg/dL Calcium 8.6 (8.6-10.8) mg/dL Adrenal panel 09/19/16 Range/Units 04:46 Sodium 140 (136-145) mEq/L Potassium 3.1 L D (3.5-4.5) mEq/L Chloride 108 (98-109) mEq/L Carbon Dioxide 26 (19-29) mEq/L BUN 8 (7-20) mg/dL Creatinine 0.69 (0.57-1.11) mg/dL Glucose 97 (70-99) mg/dL Calcium 8.6 (8.6-10.8) mg/dL Consult Discharge Plan - Plan Referrals: Ortega Elias Jr, MD [Primary Care Provider] - - Attending Attestation I examined this patient and my medical decision-making was reviewed with the BUSINESS CHANGE MANAGER/PA/Advanced Practice Nurse/Resident Physician. I agree with the documented findings, disposition and treatment plan as described except to the extent set forth below. Review of assessment and examination as mentioned above. Patient had some increased distention with some nausea which she states has passed. Positive bowel movements. Abdominal x-ray showed distention of the small bowel at the level of the anastomosis. Agree with backing off to nothing by mouth except ice chips and reevaluation in the a.m. to see if I can be advanced to fluids.
[2016-09-19] MEDS: Ondansetron 4 MG/2 ML VIAL IVP PRN ×2 (10:19→16:29)
--- NOTE | 2016-09-19 14:36 | Internal Med Progress Note ---
Date of Encounter: 09/19/16 Time of Encounter: 14:32 - Assessment and plan (1) Small bowel obstruction Current Visit: Yes Status: Acute Assessment and plan: Initially improving thismorning c/o cramping and nausea. abdomen series shows Increased distention of air-filled loops of small bowel throughout the abdomen evidence of underlying small bowel obstruction. surgery following, diet changed to ice chips only. observe for next 24 hrs. (2) Hypothyroidism Current Visit: No Status: Chronic Assessment and plan: Continue home medications Qualifiers: Hypothyroidism type: unspecified Qualified Code(s): E03.9 - Hypothyroidism , unspecified (3) DVT prophylaxis Current Visit: No Status: Acute Assessment and plan: heparin subcutaneous - Subjective Interval history: seen at the bedside. c/o cramping of abdomen and nausea this morn, no vomiting passing gas today, surgery is following - Constitutional Vitals: Temp Pulse Resp BP Pulse Ox 97.9 F 81 18 106/73 97 09/19/16 14:23 09/19/16 14:23 09/19/16 14:23 09/19/16 14:23 09/19/16 14:23 General appearance: Present: A&O X 3, no acute distress, answers questions appropriately Exam: - Head Head exam: Present: atraumatic, normocephalic - Eye Eye exam: Present: PERRL, conjuntiva pink, sclera anicteric Pupils: Present: PERRL - Neck Neck exam general surgery: Present: supple, trachea midline. Absent: lymphadenopathy - Respiratory Respiratory exam: Present: CTAB. Absent: accessory muscle use, rales, rhonchi, wheezes - Cardiovascular Cardiovascular exam: Present: RRR, +S1, +S2. Absent: diastolic murmur, gallop, rubs, systolic murmur - GI/Abdominal GI/Abdominal exam: Present: hyperactive bowel sounds, soft, no peritoneal signs. Absent: distended, tenderness - Extremities Exam Extremities exam: Present: warm, radial pulses palpable and symetrical. Absent : calf tenderness, cyanotic, pedal edema - Neurological Exam Neurological exam: Present: CN II-XII intact, oriented X3, no focal deficits. Absent: pronater drift, facial droop, speech deficit - Skin Skin exam: Present: dry, intact Internal Medicine: Result - Labs CBC & Chem 7: 09/19/16 04:46 09/19/16 04:46 Labs: Short CBC 09/19/16 Range/Units 04:46 WBC 4.4 (4.3-11.1) K/mcL Hgb 8.8 L (11.5-15.4) g/dL Hct 28.5 L (35.3-44.9) % Plt Count 255 (140-400) K/mcL Neutrophils # 2.5 (1.6-8.9) K/mcL BMP 09/19/16 04:46 Sodium 140 Potassium 3.1 L D Chloride 108 Carbon Dioxide 26 BUN 8 Creatinine 0.69 Glucose 97 Calcium 8.6 - ABG Interpretation ABG results: PT/INR, D-dimer PT 13.7 Seconds (9.4-12.1) H 09/17/16 20:48 - Impressions Impressions Chest/Abdomen X-ray 09/19/16 12:52 IMPRESSION: Increased distention of air-filled loops of small bowel throughout the abdomen evidence of underlying small bowel obstruction. D/ / Donte Malone MD / Donte Malone MD Interpreting Provider: Donte Malone MD Consult Discharge Plan - Plan Referrals: Ortega Elias Jr, MD [Primary Care Provider] -
[2016-09-20] MEDS: Pantoprazole 40 MG VIAL IVP SCH (06:28)
[2016-09-20 08:33] LABS: Basophils % 0.3 %; Eosinophils # 0.3 K/mcL (0.0-0.6); Eosinophils % 7.9 %; Hematocrit 30.7 % (35.3-44.9); Hemoglobin 8.9 g/dL (11.5-15.4); Immature Granulocytes % 0.6 % (0-4); Lymphocytes # 0.7 K/mcL (0.6-4.6); Mean Corpuscular Volume 75.8 fL (83.0-100.0); Mean Platelet Volume 9.4 fL (9.4-12.4); Monocytes # 0.4 K/mcL (0.0-1.3); Neutrophils # 1.8 K/mcL (1.6-8.9); Platelet Count 249 K/mcL (140-400); Red Blood Count 4.05 M/mcL (3.82-4.97); Segmented Neutrophils % 56.2 %
[2016-09-20 08:43] LABS: BUN/Creatinine Ratio 7 (6-26); Calcium 8.6 mg/dL (8.6-10.8); Carbon Dioxide 22 mEq/L (19-29); Chloride 111 mEq/L (98-109); Glucose 91 mg/dL (70-99); Osmolality,Calculated 287 (280-300); Potassium 3.9 mEq/L (3.5-4.5); Sodium 140 mEq/L (136-145); eGFR For African Americans > 60 (> 60); eGFR For Non-African Americans > 60 (> 60)
[2016-09-20 08:44] LABS: Blood Urea Nitrogen 5 mg/dL (7-20)
[2016-09-20] MEDS: Diclofenac Sodium 75 MG TABLET PO SCH (09:29)
[2016-09-20] MEDS: Venlafaxine XR (24 HR) 37.5 MG CAP.ER.24H PO SCH (09:29)
[2016-09-20] MEDS: Gabapentin 300 MG CAPSULE PO SCH ×3 (09:30→20:22)
[2016-09-20] MEDS: *HR* Heparin 5,000 UNIT/ML VIAL SQ SCH ×3 (09:30→23:03)
--- NOTE | 2016-09-20 13:58 | General Surgery Progress Note ---
Date of Encounter: 09/20/16 Time of Encounter: 13:57 - Assessment and Plan (1) Partial small bowel obstruction Current Visit: Yes Status: Acute Explained to the patient that due to her continued symptoms I think the next most appropriate step will be to order a SBF to determine the transit time throught the small bowel and whether or not there is any signs of a delay or lack of progression. Will follow closely. Dr. Case to cover this weekend. Subjective Patient reports: other (Patient states that she still has some abdominal distension. She admits to some cramping abdominal pain. Mild flatus, no BM.) Objective Vital Signs - Last 8 Hours Temp Pulse Resp BP Pulse Ox 09/20/16 11:14 98.1 F 74 18 117/76 97 09/20/16 07:00 98.1 F 79 16 93/62 93 Intake and Output 09/19/16 09/20/16 09/20/16 23:59 07:59 15:59 Intake Total 0 / 0 60 / 60 0 / 0 Output Total 500 / 500 0 / 0 0 / 0 Balance -500 / -500 60 / 60 0 / 0 Intake: Oral 0 / 0 60 / 60 0 / 0 Output: Urine 500 / 500 0 / 0 0 / 0 Other: Meal NPO NPO Weight 93.7 kg Blood Glucose* 87 94 Patient Weight 09/20/16 23:59 Weight 93.7 kg - Abdomen Abdomen: Present: soft, tender (mild tenderness. Abdomen is mildly more distended.) - Labs 09/20/16 08:17 09/20/16 08:17 Diabetes panel 09/20/16 Range/Units 08:17 Sodium 140 (136-145) mEq/L Potassium 3.9 (3.5-4.5) mEq/L Chloride 111 H (98-109) mEq/L Carbon Dioxide 22 (19-29) mEq/L BUN 5 L (7-20) mg/dL Creatinine 0.72 (0.57-1.11) mg/dL Glucose 91 (70-99) mg/dL Calcium 8.6 (8.6-10.8) mg/dL Calcium panel 09/20/16 Range/Units 08:17 Calcium 8.6 (8.6-10.8) mg/dL Pituitary panel 09/20/16 Range/Units 08:17 Sodium 140 (136-145) mEq/L Potassium 3.9 (3.5-4.5) mEq/L Chloride 111 H (98-109) mEq/L Carbon Dioxide 22 (19-29) mEq/L BUN 5 L (7-20) mg/dL Creatinine 0.72 (0.57-1.11) mg/dL Glucose 91 (70-99) mg/dL Calcium 8.6 (8.6-10.8) mg/dL Adrenal panel 09/20/16 Range/Units 08:17 Sodium 140 (136-145) mEq/L Potassium 3.9 (3.5-4.5) mEq/L Chloride 111 H (98-109) mEq/L Carbon Dioxide 22 (19-29) mEq/L BUN 5 L (7-20) mg/dL Creatinine 0.72 (0.57-1.11) mg/dL Glucose 91 (70-99) mg/dL Calcium 8.6 (8.6-10.8) mg/dL Consult Discharge Plan - Plan Referrals: Ortega Elias Jr, MD [Primary Care Provider] -
[2016-09-20] MEDS ORDERED: Lidocaine -MPF 1% 2 ML VIAL ID PRN (14:08)
--- NOTE | 2016-09-20 14:14 | Internal Med Progress Note ---
Date of Encounter: 09/20/16 Time of Encounter: 14:12 - Assessment and plan (1) Small bowel obstruction Current Visit: Yes Status: Acute Assessment and plan: Initially improving yesterday had c/o cramping and nausea. abdomen series shows Increased distention of air-filled loops of small bowel throughout the abdomen evidence of underlying small bowel obstruction. surgery following, diet changed to ice chips only. observe for today, no worsening of symptoms will follow surgical recommendations (2) Hypothyroidism Current Visit: No Status: Chronic Assessment and plan: Continue home medications Qualifiers: Hypothyroidism type: unspecified Qualified Code(s): E03.9 - Hypothyroidism , unspecified (3) DVT prophylaxis Current Visit: No Status: Acute Assessment and plan: heparin subcutaneous - Time Spent With Patient 25 - 35 minutes - Subjective Interval history: seen at the bedside. Reports mild soreness on the right side of her abdomen, no nausea or vomiting passing gas today, no bowel movements as of today, surgery is following - Constitutional Vitals: Temp Pulse Resp BP Pulse Ox 98.1 F 74 18 117/76 97 09/20/16 11:14 09/20/16 11:14 09/20/16 11:14 09/20/16 11:14 09/20/16 11:14 General appearance: Present: A&O X 3, no acute distress, answers questions appropriately Exam: - Head Head exam: Present: atraumatic, normocephalic - Eye Eye exam: Present: PERRL, conjuntiva pink, sclera anicteric Pupils: Present: PERRL - Neck Neck exam general surgery: Present: supple, trachea midline. Absent: lymphadenopathy - Respiratory Respiratory exam: Present: CTAB. Absent: accessory muscle use, rales, rhonchi, wheezes - Cardiovascular Cardiovascular exam: Present: RRR, +S1, +S2. Absent: diastolic murmur, gallop, rubs, systolic murmur - GI/Abdominal GI/Abdominal exam: Present: bowel sounds, soft, no peritoneal signs. Absent: distended, tenderness - Extremities Exam Extremities exam: Present: warm, radial pulses palpable and symetrical. Absent : calf tenderness, cyanotic, pedal edema - Neurological Exam Neurological exam: Present: CN II-XII intact, oriented X3, no focal deficits. Absent: pronater drift, facial droop, speech deficit - Skin Skin exam: Present: dry, intact Internal Medicine: Result - Labs CBC & Chem 7: 09/20/16 08:17 09/20/16 08:17 Labs: Short CBC 09/20/16 Range/Units 08:17 WBC 3.2 L (4.3-11.1) K/mcL Hgb 8.9 L (11.5-15.4) g/dL Hct 30.7 L (35.3-44.9) % Plt Count 249 (140-400) K/mcL Neutrophils # 1.8 (1.6-8.9) K/mcL BMP 09/20/16 08:17 Sodium 140 Potassium 3.9 Chloride 111 H Carbon Dioxide 22 BUN 5 L Creatinine 0.72 Glucose 91 Calcium 8.6 - ABG Interpretation ABG results: PT/INR, D-dimer PT 13.7 Seconds (9.4-12.1) H 09/17/16 20:48 Consult Discharge Plan - Plan Referrals: Ortega Elias Jr, MD [Primary Care Provider] -
[2016-09-20] MEDS: *HR* OxyCODONE/APAP 7.5/325 TABLET PO PRN (17:34)
[2016-09-20] MEDS: Simethicone 80 MG TAB.CHEW PO SCH ×2 (17:35→20:22)
[2016-09-20] MEDS: D5% in 0.45% NACL 1,000 ML IVC SCH (17:36)
[2016-09-21] MEDS: D5% in 0.45% NACL 1,000 ML IVC SCH ×3 (05:24→08:01)
[2016-09-21 06:20] LABS: Basophils % 0.5 %; Eosinophils # 0.3 K/mcL (0.0-0.6); Eosinophils % 7.2 %; Hematocrit 31.4 % (35.3-44.9); Hemoglobin 9.4 g/dL (11.5-15.4); Immature Granulocytes % 2.1 % (0-4); Lymphocytes # 1.4 K/mcL (0.6-4.6); Lymphocytes % 36.7 %; Mean Corpuscular HGB Conc 29.9 g/dL (31.6-35.5); Mean Corpuscular Hemoglobin 22.5 pg (28.0-33.3); Mean Corpuscular Volume 75.3 fL (83.0-100.0); Monocytes # 0.5 K/mcL (0.0-1.3); Neutrophils # 1.5 K/mcL (1.6-8.9); Nucleated Red Blood Cells 0.5 /100 WBC (0); Platelet Count 309 K/mcL (140-400); Red Blood Count 4.17 M/mcL (3.82-4.97); Red Cell Distribution Width 16.4 % (11.5-14.5); Segmented Neutrophils % 40.5 %
[2016-09-21 06:37] LABS: BUN/Creatinine Ratio 4 (6-26); Blood Urea Nitrogen 3 mg/dL (7-20); Calcium 9.1 mg/dL (8.6-10.8); Carbon Dioxide 26 mEq/L (19-29); Chloride 109 mEq/L (98-109); Glucose 86 mg/dL (70-99); Osmolality,Calculated 292 (280-300); Potassium 3.5 mEq/L (3.5-4.5); Sodium 143 mEq/L (136-145); eGFR For African Americans > 60 (> 60); eGFR For Non-African Americans > 60 (> 60)
[2016-09-21] MEDS: Venlafaxine XR (24 HR) 37.5 MG CAP.ER.24H PO SCH (07:55)
[2016-09-21] MEDS: Simethicone 80 MG TAB.CHEW PO SCH (07:56)
[2016-09-21] MEDS: *HR* Heparin 5,000 UNIT/ML VIAL SQ SCH (07:56)
[2016-09-21] MEDS: Gabapentin 300 MG CAPSULE PO SCH (07:59)
[2016-09-21] MEDS: Pantoprazole 40 MG VIAL IVP SCH (08:16)
[2016-09-21 14:51] VITALS: BP 116/77
--- NOTE | 2016-09-21 15:03 | General Surgery Progress Note ---
Date of Encounter: 09/21/16 Time of Encounter: 06:00 - Assessment and Plan (1) Partial small bowel obstruction Current Visit: Yes Status: Acute Patient has had multiple bowel movements more than 5 a day with air/gas passage at each interval. Patient is up and ambulating around the room. She is urinating without difficulty. She has tolerated her clear liquid diet without nausea or vomiting. She states improvement in pain and distention since admission on 09/17/16. Abdominal series was performed to evaluate small bowel gas to correlate with clinical acute sympotoms of nausea and bloating which demonstrated increased abdominal distention on 09/19/16. Subsequently a small bowel follow through did not demonstrate any delay or lack of progression. Small Bowel X-Ray 09/20/16 13:57 IMPRESSION: 1. Extensive postsurgical changes to the large and small bowel are present. 2. Significant distention of the bowel is present without obstruction. Contrast reaches the rectum in just over 2 hours. Plan: Start Clear liquid diet and advance as tolerated. Supportive care and pain control Incentive spirometer every 1 hour while awake PPI therapy Encourage ambulation If patient continues to progress with advancing diet without nausea/vomiting/ abdominal pain and is tolerating well patient may be discharged home on Full liquid Diet. Patient must be up to ambulate, voiding without difficulty, continuing to produce stool and gas. Patient is stable from a surgical standpoint. Will sign out. Discharge planning per hospitalist. - Spoke with hospitalist regarding GI consult on DC. The assessment and plan as outlined above was discussed with the patient and/or family members who expressed understanding and agreement. All questions were answered. Subjective Patient reports: no new complaints, feels better, pain is less, voiding w/o difficulty, flatus, bowel movement, afebrile Narrative: the patient was seen and examined. She is increasingly hungry and would like to trial to clear liquids as she states she had no trouble with drinking water yesterday or ingesting the PO contrast. She has yet to ambulate the hallways despite being told daily to do so. However, She is up to ambulate around the room. Active bowel sounds and no evidence of obstruction on small bowel follow through. Distention related to gas and bloating still present. Discussed with patient the need for evaluation by GI specialist for possible functionally related GI issue given that she has Hirschsprung disease. Patient would like a referral to see [facility]. Patient has been having daily large volumes of stool with air present when stooling. States she has been told to take Miralx TID by her previous GI specialist however, she chooses not to do so to avoid spending all day in the restroom. Objective Vital Signs - Last 8 Hours Temp Pulse Resp BP Pulse Ox 09/21/16 10:08 98.1 F 85 16 124/79 95 Intake and Output 09/20/16 09/21/16 09/21/16 23:59 07:59 15:59 Intake Total 500 / 500 500 / 500 1950 / 1950 Output Total 100 / 100 50 / 50 200 / 200 Balance 400 / 400 450 / 450 1750 / 1750 Intake: IV Fluids 500 / 500 500 / 500 1000 / 1000 D5% And 0.45% Nacl 1000 500 / 500 500 / 500 1000 / 1000 Ml Bag 1,000 ML @ 60 mls/ hr IVC .[id number] CALEB Rx#: [id number] Oral 950 / 950 Output: Urine 100 / 100 50 / 50 200 / 200 Other: Meal NPO Lunch Percent of Meal Consumed 0% Stool Size Small Stool Consistency liquid Stool Color Green # Voids 1 # Bowel Movements 1 Weight 91.354 kg Blood Glucose* 76 85 Patient Weight 09/21/16 23:59 Weight 91.354 kg - General physical appearance well developed, well nourished, no distress, moderate pain, obese - Eyes PERRL, normal ocular movement - ENT normal mucosa, atraumatic, normocephalic, CN 2-12 grossly intact - Neck Neck exam: no masses, trachea midline - Respiratory normal expansion, normal respiratory effort, clear to auscultation - Cardiovascular Cardiovascular exam: Present: RRR, no murmurs/rubs/gallops. Absent: JVD - Abdomen Abdomen: Present: bowel sounds present, soft, tender Abdominal Tenderness: diffusely - Integumentary no rash, no abnormal pigmentation - Neurologic CN 2-12 grossly intact, normal coordination, normal sensation - Musculoskeletal normal gait, normal posture - Psychiatric oriented to time, oriented to person, oriented to place, speech is normal, memory intact - Labs 09/21/16 05:53 09/21/16 05:53 Diabetes panel 09/21/16 Range/Units 05:53 Sodium 143 (136-145) mEq/L Potassium 3.5 (3.5-4.5) mEq/L Chloride 109 (98-109) mEq/L Carbon Dioxide 26 (19-29) mEq/L BUN 3 L (7-20) mg/dL Creatinine 0.72 (0.57-1.11) mg/dL Glucose 86 (70-99) mg/dL Calcium 9.1 (8.6-10.8) mg/dL Calcium panel 09/21/16 Range/Units 05:53 Calcium 9.1 (8.6-10.8) mg/dL Pituitary panel 09/21/16 Range/Units 05:53 Sodium 143 (136-145) mEq/L Potassium 3.5 (3.5-4.5) mEq/L Chloride 109 (98-109) mEq/L Carbon Dioxide 26 (19-29) mEq/L BUN 3 L (7-20) mg/dL Creatinine 0.72 (0.57-1.11) mg/dL Glucose 86 (70-99) mg/dL Calcium 9.1 (8.6-10.8) mg/dL Adrenal panel 09/21/16 Range/Units 05:53 Sodium 143 (136-145) mEq/L Potassium 3.5 (3.5-4.5) mEq/L Chloride 109 (98-109) mEq/L Carbon Dioxide 26 (19-29) mEq/L BUN 3 L (7-20) mg/dL Creatinine 0.72 (0.57-1.11) mg/dL Glucose 86 (70-99) mg/dL Calcium 9.1 (8.6-10.8) mg/dL Consult Discharge Plan - Plan Referrals: Ortega Elias Jr, MD [Primary Care Provider] - Anat Salomon MD [Partnered Physician] - (1 week hospital follow up for SBO HX of Hirschbrungs Disease. ) - Attending Attestation I examined this patient and my medical decision-making was reviewed with the [employer] G[employer]NER SUPERINTENDENT/PA/Advanced Practice Nurse/Resident Physician. I agree with the documented findings, disposition and treatment plan as described except to the extent set forth below. The patient was seen and evaluated on morning rounds. She is in no abdominal distress. There is no evidence of bowel obstruction on her studies. We will advance her diet. She does not appear to require surgical intervention for mechanical obstruction. Dinesh Case MD FACS
--- NOTE | 2016-09-21 16:49 | Discharge Summary ---
Date of Encounter: 09/21/16 Time of Encounter: 16:46 - Discharge Diagnosis (1) Small bowel obstruction Priority: Primary Status: Acute (2) Hypothyroidism Priority: Secondary Status: Chronic Qualifiers: Hypothyroidism type: unspecified Qualified Code(s): E03.9 - Hypothyroidism , unspecified (3) DVT prophylaxis Priority: Secondary Status: Acute - Discharge Medications Prescriptions: Ferrous Sulfate 325 mg PO BIDWM #60 tablet Simethicone [Gas-X] 80 mg PO TID PRN #30 tab.chew PRN Reason: Abdominal Distention Home Medications: Albuterol Sulfate [Albuterol Inhaler] 2 puff IH Q4H PRN 09/17/16 [History] Diclofenac Sodium [Voltaren] 75 mg PO BID 09/17/16 [History] Gabapentin [Neurontin] 300 mg PO TID 09/17/16 [History] Hyoscyamine SL [Levsin Sl] 0.125 mg SL TID PRN 09/17/16 [History] Lansoprazole [Prevacid] 30 mg PO DAILY 09/17/16 [History] Levothyroxine [Synthroid] [place] [address]/17/16 [History] Lidocaine Patch [Lidoderm 5% patch] 1 each TP DAILY PRN 09/17/16 [History] Lubiprostone [Amitiza] 8 mcg PO BID 09/17/16 [History] Montelukast [Singulair] 10 mg PO HS 09/17/16 [History] OxyCODONE/APAP 7.5/325 [Percocet 7.5/325 MG] 1 tab PO Q6H PRN 09/17/16 [History] Polyethylene Glycol 3350 [Smoothlax] 17 gm PO BID PRN 09/17/16 [History] Rifaximin [Xifaxan] 550 mg PO BID 09/17/16 [History] Venlafaxine XR (24 HR) [Effexor Xr] 37.5 mg PO DAILY 09/17/16 [History] Ferrous Sulfate 325 mg PO BIDWM #60 tablet 09/21/16 [Rx] Simethicone [Gas-X] 80 mg PO TID PRN #30 tab.chew 09/21/16 [Rx] Allergies/Adverse Reactions: Allergies ciprofloxacin [From Cipro] Adverse Reaction (Verified 03/05/15 12:08) Rash Date of admission: 09/17/16 22:40 Primary care physician: Ortega Elias Jr, MD Consults: 09/18/16 00:35 Consult to Pastoral Services [CONS] Routine Comment: 09/20/16 14:08 Consult to Invasive Line Access Team [CONS] Routine Reason for Consult: poor access Line Type: EPIV Discharging clinician: Anuradha Vincent Anticipated date of discharge: 09/21/16 - Patient Status Disposition: Home, Self-Care Condition: Fair Functional capacity at discharge: independent ambulation Overall status at discharge: patient is progressing back to baseline - Discharge Instructions Instructions: Bowel Obstruction (DC) Follow Up With: Ortega Elias Jr, MD [Primary Care Provider] - Anat Salomon MD [Partnered Physician] - (1 week hospital follow up for SBO HX of Hirschbrungs Disease. ) Additional Instructions: Follow-up appointments: If there is not an appointment listed below, please call your physician and schedule a follow-up appointment. If you have congestive heart failure and your symptoms return, make an appointment with your physician. Medication List: Carry an up to date list of medications you are taking at all time. We have given you an updated medication list including any new medications that you have been prescribed. Please provide that list to your primary provider Symptoms: If your condition changes or you experience any of the following symptoms, notify your physician immediately: Unusual or worsening pain, fever, persistent nausea and vomiting, bleeding, increase in swelling (especially in your legs), sudden weight gain, extreme dizziness, chest pain, increased drainage or redness from a wound or incision. Go to the emergency department if you experience a problem with breathing. Weights: If you have a history of swelling or shortness of breath, weigh yourself daily and notify your physician if you have a weight gain of two or more pounds in one day or 5 or more pounds in a week. If you experience any of the warning signs for stroke: Sudden numbness or weakness of the face, arm or leg; especially on one side of the body, sudden confusion, trouble speaking or understanding, sudden trouble seeing in one or both eyes, sudden trouble walking, dizziness, loss of balance or coordination, sudden sever headache with no cause; Call 911 or go to the emergency room. Stroke is a medical emergency. Some risk factors for stroke: Age, cigarette smoking, diabetes, excessive alcohol consumption, family history , high blood pressure, overweight, physical inactivity, prior stroke, heart attack, diagnosis of carotid artery stenosis or other artery disease. If you smoke, STOP: Smoking or tobacco use significantly increases your risk of heart and lung disease. Your chance of disease greatly increases if you continue to smoke. For more information, call the [place] tobacco quit line for smoking cessation -NOW ( ) - Diet and Activity Activity: resume usual activities as tolerated Diet: other (soft diet) Interval History: Ms. 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 Patient has a history of prior bowel surgeries 2. She also has a history of hysterotomy. She has a history of small bowel obstruction in the past which resolved after 4 days with conservative management. She presents with sudden onset about pain that started Friday with absence of bowel movements, nausea. Exam reveals absence of bowel sounds and tenderness to palpation without rebound tenderness. CT scan reveals small bowel obstruction with possible twisting of the mesentery. Surgery was consulted by the ER and it was recommended that the patient be admitted with conservative management. she was tretaed with conservative management, surgery followed and patient improved clinically although gradually. she had a bowel follow through which showed no delay in passing of the contrast. at the time of dc ,she is tolerating soft diet without worseining pain or nausea or vomiting she will also be given f/u [facility] for the Hirschsprung disease. she is being dc in stable condition. Hospital course: Ms. Leblanc is a 66 year old female - Time Spent with Patient Total time spent providing and/or coordinating discharge services: - Constitutional Vitals: Temp Pulse Resp BP Pulse Ox 98.5 F 90 16 116/77 95 09/21/16 14:47 09/21/16 14:47 09/21/16 14:47 09/21/16 14:47 09/21/16 14:47 General appearance: Present: A&O X 3, no acute distress, answers questions appropriately Exam: neck- supple chest- b/l clear cvs- s1 adn s2, no mr,g abd-soft, non tender, bs are present ext- no edema
== END 2016-09-21 18:13 | disposition home or self-care (01) | DRG 389 ==
LOC: EMEROO 20:06 → 3ANU 20:06
PROVIDERS: ADMIT Internal Medicine Sleep Medicine; ATTEND Internal Medicine

== ENCOUNTER 2016-12-11 18:28 | Inpatient (IN) ==
[2016-12-11 20:55] LABS: Bilirubin,Urine Small (Negative); Blood,Urine Negative (Negative); Clarity,Urine Clear (Clear); Color,Urine Dark Yellow (Yellow); Glucose,Urine (UA) Normal (Normal); Ketones,Urine 15 mg/dL (Negative); Leukocyte Esterase,Urine Small (Negative); Nitrite,Urine Negative (Negative); Protein,Urine Trace mg/dL (Neg-Trace); Specific Gravity,Urine > 1.030 (1.010-1.025); Urobilinogen,Urine Normal (Normal)
[2016-12-11 20:56] LABS: Bacteria,Urine None Seen per hpf (None-Few); RBC,Urine 0-3 per hpf (0-3); Squamous Epithelial Cell,Urine Many per lpf (None-Few)
[2016-12-11 20:58] LABS: Basophils % 0.5 %; Eosinophils # 0.1 K/mcL (0.0-0.6); Eosinophils % 1.3 %; Hematocrit 47.3 % (35.3-44.9); Hemoglobin 15.3 g/dL (11.5-15.4); Immature Granulocytes % 0.1 % (0-4); Mean Corpuscular HGB Conc 32.3 g/dL (31.6-35.5); Mean Corpuscular Hemoglobin 25.8 pg (28.0-33.3); Mean Corpuscular Volume 79.8 fL (83.0-100.0); Monocytes # 0.8 K/mcL (0.0-1.3); Monocytes % 9.8 %; Neutrophils # 6.3 K/mcL (1.6-8.9); Platelet Count 372 K/mcL (140-400); Red Blood Count 5.93 M/mcL (3.82-4.97); Red Cell Distribution Width 18.9 % (11.5-14.5); Segmented Neutrophils % 76.3 %
[2016-12-11 21:05] LABS: INR 1.2; Prothrombin Time 12.7 Seconds (9.4-12.1)
[2016-12-11 21:08] LABS: Activated Partial Thrombo Time 29.3 Seconds (26.0-36.0)
[2016-12-11 21:13] LABS: Alanine Aminotransferase 22 Units/L (0-55); Albumin 4.4 g/dL (3.5-5.0); Albumin/Globulin Ratio 1.3 (1.1-2.2); Alkaline Phosphatase 105 Units/L (38-126); Aspartate Amino Transferase 22 Units/L (5-34); BUN/Creatinine Ratio 19 (6-26); Bilirubin,Direct 0.4 mg/dL (0.0-0.5); Bilirubin,Indirect 0.5 mg/dL (0.0-1.2); Bilirubin,Total 0.9 mg/dL (0.2-1.2); Blood Urea Nitrogen 15 mg/dL (7-20); Calcium 10.4 mg/dL (8.6-10.8); Carbon Dioxide 25 mEq/L (19-29); Chloride 104 mEq/L (98-109); Globulin 3.5 g/dL (2.4-3.5); Glucose 116 mg/dL (70-99); Lipase 12 Units/L (8-78); Osmolality,Calculated 290 (280-300); Potassium 3.8 mEq/L (3.5-4.5); Sodium 139 mEq/L (136-145); Total Protein 7.9 g/dL (6.0-8.3); eGFR For African Americans > 60 (> 60); eGFR For Non-African Americans > 60 (> 60)
[2016-12-11 21:14] LABS: Calcium Oxalate Crystals,Urine Present
[2016-12-11 21:15] LABS: Hyaline Casts,Urine None Seen per lpf (None-Few); Mucus,Urine Moderate (Few)
[2016-12-11] MEDS ORDERED: *HR* Morphine 2 MG/ML SYRINGE IVP ONE (21:21)
[2016-12-11] MEDS ORDERED: Ondansetron 4 MG/2 ML VIAL IVP ONE (21:21)
--- NOTE | 2016-12-11 21:31 | Emergency Department Note ---
Disposition Clinical Impression: Bowel obstruction Qualifiers: Intestinal obstruction type: volvulus Qualified Code(s): K56.2 - Volvulus Disposition: Admitted As Inpatient Condition: Good Referrals: Ortega Elias Jr, MD [Primary Care Provider] - Forms: Work/School Release, ED Satisfaction Letter Time of Disposition: 22:48 Abdominal Pain HPI - General Chief Complaint: ED Abdominal Pain Stated Complaint: ABD Pain Time Seen by Provider: 12/11/16 20:19 Source: patient Mode of arrival: ambulatory Limitations: no limitations Nursing Notes Reviewed: Yes Vital Signs Reviewed: Yes - History of Present Illness HPI Narrative: 66 year old female with HX of multiple small bowel obstructions due to a HX of late finding of Hirschprugs states taht she has been experiencing incresed abdominal discomfort with generalized tenderness. Patient states taht her last bowel movement was on Friday and the pain has been getting worse and now has nausea and feels like vomitting she states that this feels like her small bowel obstructions from in the past. PAtinet states that she has had three surgeres and multiple admission for partial small bowel obstructions. Walker denies chest pain, shortness of breath, UTI symptoms, or radiation of the pain. Pain Scale: 10 - Related Data Home Medications Medication Instructions Recorded Confirmed Albuterol Sulfate [Albuterol 2 puff IH Q4H PRN 09/17/16 09/17/16 Inhaler] Diclofenac Sodium [Voltaren] 75 mg PO BID 09/17/16 09/17/16 Gabapentin [Neurontin] 300 mg PO TID 09/17/16 09/17/16 Hyoscyamine SL [Levsin Sl] 0.125 mg SL TID PRN 09/17/16 09/17/16 Lansoprazole [Prevacid] 30 mg PO DAILY 09/17/16 09/17/16 Levothyroxine [Synthroid] 112 mcg PO 0630 09/17/16 09/17/16 Lidocaine Patch [Lidoderm 5% patch] 1 each TP DAILY PRN 09/17/16 09/17/16 Lubiprostone [Amitiza] 8 mcg PO BID 09/17/16 09/17/16 Montelukast [Singulair] 10 mg PO HS 09/17/16 09/17/16 OxyCODONE/APAP 7.5/325 [Percocet 1 tab PO Q6H PRN 09/17/16 09/17/16 7.5/325 MG] Polyethylene Glycol 3350 17 gm PO BID PRN 09/17/16 09/17/16 [Smoothlax] Rifaximin [Xifaxan] 550 mg PO BID 09/17/16 09/17/16 Venlafaxine XR (24 HR) [Effexor Xr] 37.5 mg PO DAILY 09/17/16 09/17/16 Previous Rx's Medication Instructions Recorded Ferrous Sulfate 325 mg PO BIDWM #60 tablet 09/21/16 Simethicone [Gas-X] 80 mg PO TID PRN #30 tab.chew 09/21/16 Allergies Allergy/AdvReac Type Severity Reaction Status Date / Time ciprofloxacin [From Cipro] AdvReac Rash Verified 03/05/15 12:08 Constitutional: Denies: fever, chills, weakness, weight change Eyes: Denies: eye pain, eye discharge, vision change ENT ED: Denies: ear pain, throat pain, dental pain, hearing loss, epistaxis, congestion, dysphagia Cardiovascular: Denies: chest pain, palpitations, dyspnea on exertion, edema, syncope Respiratory: Denies: cough, dyspnea, wheezes, hemoptysis, stridor Gastrointestinal: Reports: abdominal pain, nausea, constipation. Denies: vomiting, diarrhea, hematemesis, melena, hematochezia Genitourinary: Denies: dysuria, frequency, hematuria, discharge Musculoskeletal: Denies: back pain, neck pain, arthralgia, myalgia Integumentary: Denies: rash, abrasion, lesions Neurological: Denies: headache, weakness, numbness, paresthesias, confusion, abnormal gait, vertigo Psychiatric: Denies: anxiety, depression, suicidal thoughts, homicidal thoughts , auditory hallucinations, visual hallucinations Endocrine: Denies: fatigue Hematological/Lymphatic: Denies: easy bleeding, easy bruising Allergic/Immunologic: Denies: facial swelling, urticaria Abdominal Pain PMH - Past Medical History Medical history: Reports: GERD, kidney stones Female Surgical History: Reports: other Psychiatric history: Reports: anxiety - Social History Smoking status: Never smoker Alcohol use: Reports: occasionally Drug use: Reports: none Physical Exam - General Limitations: no limitations General appearance: alert, in no apparent distress - Head Head exam: atraumatic, normocephalic, normal inspection - Eye Eye exam: Present: normal appearance, PERRL, EOMI - Expanded Eye Exam Pupils: Left: reactive - ENT ENT exam: normal exam, normal oropharynx, mucous membranes moist - Expanded ENT Exam External ear exam: Present: normal external inspection Mouth exam: Present: normal external inspection Teeth exam: Present: normal inspection Throat exam: Present: normal inspection - Neck Neck exam: Present: normal inspection, full ROM, trachea midline - Chest Chest inspection: Present: normal inspection, symmetric chest wall rise - Respiratory Respiratory exam: Present: normal lung sounds bilaterally - Cardiovascular Cardiovascular exam: Present: regular rate, normal rhythm, normal heart sounds - Abdominal Exam Abdominal exam: Present: soft, tenderness, diminished bowel sounds. Absent: Non -Tender, distention, guarding, rebound, rigidity, Farmer's sign, Rovsing's sign , tenderness at McBurney's Point, mass, bruit, pulsatile mass, hernia Abdominal tenderness: Present: diffuse, mild - Extremities Exam Extremities exam: Present: normal inspection, full ROM. Absent: tenderness, pedal edema - Expanded Upper Extremity Exam Shoulder exam: Present: normal inspection, full ROM Arm exam: Present: normal inspection, full ROM Elbow exam: Present: normal inspection, full ROM Forearm/Wrist exam: Present: normal inspection, full ROM Hand exam: Present: normal inspection, full ROM Vascular exam: Normal: capillary refill, radial pulse - Expanded Lower Extremity Exam Hip/Pelvis exam: Present: normal inspection, full ROM Upper leg exam: Present: normal inspection, full ROM Knee exam: Present: normal inspection, full ROM Lower leg exam: Present: normal inspection, full ROM Ankle exam: Present: normal inspection, full ROM Foot/toe exam: Present: normal inspection, full ROM Neurovascular/Tendon exam: Absent: motor deficit, sensory deficit, tendon deficit - Back Exam Back exam: Present: normal inspection, full ROM. Absent: tenderness - Neurological Exam Neurological exam: Present: alert, oriented X3 - Expanded Neurological Exam Patient oriented to: Present: person, place, time Coma Scale Eye Opening: Spontaneous Coma Scale Motor Response: Obeys Commands Coma Scale Verbal Response: Oriented Coma Scale Total: 15 - Psychiatric Psychiatric exam: Present: normal affect, normal mood - Skin Skin exam: Present: warm, dry, intact, normal color Course Course Narrative: we will do an abdominal pain workup and an ABCT to rule out obstruction - Consultations Consultation #1: discussed case with Dr. Zimmerman and she accepts patient to her service. NG tube inserted before going to the floors. Time: 22:47 Vital Signs Temperature 98.1 F 12/11/16 19:23 Pulse Rate 79 12/11/16 19:23 Respiratory Rate 18 12/11/16 19:23 Blood Pressure 145/88 12/11/16 19:23 O2 Sat by Pulse Oximetry 98 12/11/16 19:23 Temperature 98.1 F 12/11/16 19:23 Pulse Rate 79 12/11/16 19:23 Respiratory Rate 18 12/11/16 19:23 Blood Pressure 145/88 12/11/16 19:23 O2 Sat by Pulse Oximetry 98 12/11/16 19:23 Oxygen Delivery Oxygen Delivery Room Air Abdominal Pain - Lab Data Result diagrams: 12/11/16 20:51 12/11/16 20:51 Lab Results 12/11/16 12/11/16 12/11/16 Range/Units 20:45 20:51 20:51 WBC 8.2 (4.3-11.1) K/mcL RBC 5.93 H (3.82-4.97) M/mcL Hgb 15.3 (11.5-15.4) g/dL Hct 47.3 H (35.3-44.9) % MCV 79.8 L (83.0-100.0) fL MCH 25.8 L (28.0-33.3) pg MCHC 32.3 (31.6-35.5) g/dL RDW 18.9 H (11.5-14.5) % Plt Count 372 (140-400) K/mcL MPV 9.0 L (9.4-12.4) fL Immature Gran % 0.1 (0-4) % Seg Neutrophils % 76.3 % Lymphocytes % 12.0 % Monocytes % 9.8 % Eosinophils % 1.3 % Basophils % 0.5 % Neutrophils # 6.3 (1.6-8.9) K/mcL Lymphocytes # 1.0 (0.6-4.6) K/mcL Monocytes # 0.8 (0.0-1.3) K/mcL Eosinophils # 0.1 (0.0-0.6) K/mcL Basophils # 0.0 (0.0-0.2) K/mcL Immature Plt Fraction 3.0 (1.1-6.1) % PT (9.4-12.1) Seconds INR APTT (26.0-36.0) Seconds Sodium 139 (136-145) mEq/L Potassium 3.8 (3.5-4.5) mEq/L Chloride 104 (98-109) mEq/L Carbon Dioxide 25 (19-29) mEq/L BUN 15 (7-20) mg/dL Creatinine 0.81 (0.57-1.11) mg/dL Est GFR ( Amer) > 60 (> 60) Est GFR (Non-Af Amer) > 60 (> 60) BUN/Creatinine Ratio 19 (6-26) Glucose 116 H (70-99) mg/dL Calculated Osmolality 290 (280-300) Lactic Acid (0.5-2.2) mmol/L Calcium 10.4 (8.6-10.8) mg/dL Total Bilirubin 0.9 (0.2-1.2) mg/dL Direct Bilirubin 0.4 (0.0-0.5) mg/dL Indirect Bilirubin 0.5 (0.0-1.2) mg/dL AST 22 (5-34) Units/L ALT 22 (0-55) Units/L Alkaline Phosphatase 105 (38-126) Units/L Troponin I (0-0.03) ng/mL Serum Total Protein 7.9 (6.0-8.3) g/dL Albumin 4.4 (3.5-5.0) g/dL Globulin 3.5 (2.4-3.5) g/dL Albumin/Globulin Ratio 1.3 (1.1-2.2) Lipase 12 (8-78) Units/L Urine Color Dark Yellow (Yellow) Urine Clarity Clear (Clear) Urine pH 6.0 (5.0-8.0) pH Units Ur Specific [place] > 1.030 H (1.010-1.025) Urine Protein Trace (Neg-Trace) mg/dL Urine Glucose (UA) Normal (Normal) mg/dL Urine Ketones 15 H (Negative) mg/dL Urine Blood Negative (Negative) Urine Nitrite Negative (Negative) Urine Bilirubin Small H (Negative) Urine Urobilinogen Normal (Normal) mg/dL Ur Leukocyte Esterase Small H (Negative) Urine Microscopic RBC 0-3 (0-3) per hpf Urine Microscopic WBC 5-15 H (0-3) per hpf Ur Squamous Epith Cells Many H (None-Few) per lpf Calcium Oxalate Crystal Present Urine Bacteria None Seen (None-Few) per hpf Hyaline Casts None Seen (None-Few) per lpf Urine Mucus Moderate H (Few) Ur Culture Indicated? YES A (NO) 12/11/16 12/11/16 12/11/16 Range/Units 20:51 20:51 20:51 WBC (4.3-11.1) K/mcL RBC (3.82-4.97) M/mcL Hgb (11.5-15.4) g/dL Hct (35.3-44.9) % MCV (83.0-100.0) fL MCH (28.0-33.3) pg MCHC (31.6-35.5) g/dL RDW (11.5-14.5) % Plt Count (140-400) K/mcL MPV (9.4-12.4) fL Immature Gran % (0-4) % Seg Neutrophils % % Lymphocytes % % Monocytes % % Eosinophils % % Basophils % % Neutrophils # (1.6-8.9) K/mcL Lymphocytes # (0.6-4.6) K/mcL Monocytes # (0.0-1.3) K/mcL Eosinophils # (0.0-0.6) K/mcL Basophils # (0.0-0.2) K/mcL Immature Plt Fraction (1.1-6.1) % PT 12.7 H (9.4-12.1) Seconds INR 1.2 APTT 29.3 (26.0-36.0) Seconds Sodium (136-145) mEq/L Potassium (3.5-4.5) mEq/L Chloride (98-109) mEq/L Carbon Dioxide (19-29) mEq/L BUN (7-20) mg/dL Creatinine (0.57-1.11) mg/dL Est GFR ( Amer) (> 60) Est GFR (Non-Af Amer) (> 60) BUN/Creatinine Ratio (6-26) Glucose (70-99) mg/dL Calculated Osmolality (280-300) Lactic Acid 1.6 (0.5-2.2) mmol/L Calcium (8.6-10.8) mg/dL Total Bilirubin (0.2-1.2) mg/dL Direct Bilirubin (0.0-0.5) mg/dL Indirect Bilirubin (0.0-1.2) mg/dL AST (5-34) Units/L ALT (0-55) Units/L Alkaline Phosphatase (38-126) Units/L Troponin I 0.01 (0-0.03) ng/mL Serum Total Protein (6.0-8.3) g/dL Albumin (3.5-5.0) g/dL Globulin (2.4-3.5) g/dL Albumin/Globulin Ratio (1.1-2.2) Lipase (8-78) Units/L Urine Color (Yellow) Urine Clarity (Clear) Urine pH (5.0-8.0) pH Units Ur Specific [place] (1.010-1.025) Urine Protein (Neg-Trace) mg/dL Urine Glucose (UA) (Normal) mg/dL Urine Ketones (Negative) mg/dL Urine Blood (Negative) Urine Nitrite (Negative) Urine Bilirubin (Negative) Urine Urobilinogen (Normal) mg/dL Ur Leukocyte Esterase (Negative) Urine Microscopic RBC (0-3) per hpf Urine Microscopic WBC (0-3) per hpf Ur Squamous Epith Cells (None-Few) per lpf Calcium Oxalate Crystal Urine Bacteria (None-Few) per hpf Hyaline Casts (None-Few) per lpf Urine Mucus (Few) Ur Culture Indicated? (NO) - EKG Data EKG attestation: Yes I reviewed and interpreted this EKG. EKG results narrative: NSR with rate of 99. NO STEMI. normal intervals. no change from 03/05/15. 2033
[2016-12-11] MEDS ORDERED: *HR* Midazolam HCl 5 MG/ML VIAL IVP ONE (22:56)
[2016-12-12] MEDS ORDERED: *HR* HYDROmorphone (PF) 1 MG/ML SYRINGE ONE ×2 (02:03→04:20)
[2016-12-12] MEDS ORDERED: 0.9 % Sodium Chloride 1,000 ML ONE (02:19)
[2016-12-12] MEDS ORDERED: *HR* Promethazine 25 MG/ML VIAL IV PRN (04:52)
[2016-12-12] MEDS: 0.9 % Sodium Chloride 1,000 ML IV SCH ×3 (06:05→18:48)
[2016-12-12] MEDS: Pantoprazole 40 MG VIAL IVP SCH (06:07)
[2016-12-12 06:11] LABS: Basophils % 0.6 %; Eosinophils # 0.2 K/mcL (0.0-0.6); Eosinophils % 3.1 %; Hematocrit 40.7 % (35.3-44.9); Immature Granulocytes % 0.2 % (0-4); Lymphocytes # 1.1 K/mcL (0.6-4.6); Lymphocytes % 21.9 %; Mean Corpuscular HGB Conc 31.9 g/dL (31.6-35.5); Mean Corpuscular Hemoglobin 25.5 pg (28.0-33.3); Mean Corpuscular Volume 79.8 fL (83.0-100.0); Monocytes # 0.6 K/mcL (0.0-1.3); Monocytes % 11.9 %; Neutrophils # 3.2 K/mcL (1.6-8.9); Platelet Count 302 K/mcL (140-400); Red Cell Distribution Width 18.7 % (11.5-14.5); Segmented Neutrophils % 62.3 %
[2016-12-12 06:15] LABS: BUN/Creatinine Ratio 18 (6-26); Blood Urea Nitrogen 12 mg/dL (7-20); Calcium 9.1 mg/dL (8.6-10.8); Carbon Dioxide 25 mEq/L (19-29); Chloride 107 mEq/L (98-109); Glucose 96 mg/dL (70-99); Osmolality,Calculated 292 (280-300); Potassium 3.6 mEq/L (3.5-4.5); Sodium 141 mEq/L (136-145); eGFR For African Americans > 60 (> 60); eGFR For Non-African Americans > 60 (> 60)
[2016-12-12] MEDS ORDERED: Naloxone 0.4 MG/ML INJ IVP PRN (07:57)
[2016-12-12] MEDS ORDERED: *HR* Metoprolol 5 MG/5 ML VIAL IVP PRN (07:57)
[2016-12-12] MEDS ORDERED: Chloraseptic Spray 177 ML BOTTLE MM PRN (08:34)
[2016-12-12] MEDS: *HR* HYDROmorphone (PF) 1 MG/ML SYRINGE IVP PRN ×6 (09:00→21:47)
[2016-12-12] MEDS: Lidocaine Viscous Oral Soln 15 ML SOLUTION MM SCH ×4 (11:12→21:47)
[2016-12-12] MEDS: Levothyroxine Sodium 100 MCG VIAL IVP SCH (15:49)
--- NOTE | 2016-12-12 15:50 | General Surg History&Physical ---
<Saeid Nowak - Last Filed: 12/12/16 17:11> Date of Encounter: 12/12/16 Time of Encounter: 01:30 Assessment and Plan (1) Partial small bowel obstruction Current Visit: No Status: Acute Patient is improving. NG tube draining approximately 100ml of light brown material. Patient also reports +flatus and 2x loose stools. Continue to monitor NGT. Will consider removing the NGT and starting the patient on clear liquid diet tonight or tomorrow in the morning. Continue supportive care. Pain management with dilaudid. PPI for nausea and vomiting. Ambulate as tolerated. A.M. Labs. Surgery will continue to monitor. The assessment and plan as outlined above was discussed with the patient and/or family members who expressed understanding and agreement. All questions were answered. (2) Hypothyroidism Current Visit: No Status: Chronic Continue Synthroid. The assessment and plan as outlined above was discussed with the patient and/or family members who expressed understanding and agreement. All questions were answered. Qualifiers: Hypothyroidism type: unspecified Qualified Code(s): E03.9 - Hypothyroidism , unspecified (3) DVT prophylaxis Current Visit: No Status: Acute Heparin 5000 units for DVT prophylaxis. History of Present Illness Chief complaint: abdominal pain HPI: Ms. Leblanc is a 66 year old female with a PMH of multiple small bowel obstructions (total colectomy at age 28, SMR in 1997), hypothyroidism, arthritis who presented to the ED for "small bowel obstruction" and abdominal pain with nausea for 3 days. She informs me that she had a late diagnosis of Hirschsprung's disease. Other surgical history includes hysterectomy and hip arthroplasty. The patient reports that she has an extensive history of small bowel obstructions, which have recently been getting worse. Her last bowel movement was 3 days ago before she ate home made hamburgers by her . She has had similar abdominal pain six times this year and was most recently hospitalized on 09/17/16 for partial small bowel obstruction improved with conservative management. The patient states that Miralax at home improved her symptoms the last few times, but it did not help this time. She states that she hasn't had anything by mouth since Friday due to abdominal discomfort. CT Abd/ Pelvis confirms diagnoses of bowel obstruction at anastomosis in left mid to lower abdomen. Activity level at home > 4 METs. Patient is currently NPO with NGT draining light brown substance. Current pain located in the LLQ without radiation 05/31. Patient continues to have nausea but has since passed gas and had 4 loose stools. Past Med Surg Social Fam HX - Past Medical History Medical history: GERD, kidney stones Psychiatric history: anxiety - Past Surgical History Surgical History: colectomy, hip replacement, hysterectomy, knee replacement, other - Social History Smoking Status: Never smoker Smokeless Tobacco Status: No Alcohol use: occasionally Drug use: none - Family History Mother Living Status: Hx Family GI Disorders: No Hx Family Neuromuscular Disorders: Yes (Dementia, Parkisons) Hx Family Autoimmune Disorders: No Father History Unknown: Yes Adopted: No Age: 62 Family Member Ethnicity: Non- Living Status: Age at : 62 Cause of : Hemochromitosis? Hx Family Cardiac Disorders: Yes (NM) Hx Family Respiratory Disorders: No Hx Family Cancer: No Hx Family GI Disorders: No Hx Family Genitourinary Disorders: No Hx Family Endocrine Disorder: No Hx Family Musculoskeletal Disorders: No Hx Family Neuromuscular Disorders: No Hx Family Neurologic Disorders: No Hx Family HEENT Disorders: No Hx Family Autoimmune Disorders: No Hx Family Reproductive Disorders: No Hx Family Psychosocial Disorders: No Hx Family Medical Disorders: No Medications and Allergies Gabapentin [Neurontin] 300 mg PO TID 09/17/16 [History] Hyoscyamine SL [Levsin Sl] 0.125 mg SL TID PRN 09/17/16 [History] Lansoprazole [Prevacid] 30 mg PO DAILY 09/17/16 [History] Levothyroxine [Synthroid] 112 mcg PO 0630 09/17/16 [History] Lidocaine Patch [Lidoderm 5% patch] 1 each TP DAILY PRN 09/17/16 [History] Lubiprostone [Amitiza] 8 mcg PO BID 09/17/16 [History] Montelukast [Singulair] 10 mg PO HS 09/17/16 [History] OxyCODONE/APAP 7.5/325 [Percocet 7.5/325 MG] 1 tab PO Q6H PRN 09/17/16 [History] Polyethylene Glycol 3350 [Smoothlax] 17 gm PO BID PRN 09/17/16 [History] Venlafaxine XR (24 HR) [Effexor Xr] 37.5 mg PO DAILY 09/17/16 [History] Simethicone [Gas-X] 80 mg PO TID PRN #30 tab.chew 09/21/16 [Rx] Ascorbate Calcium [Vitamin C] 500 mg PO DAILY 12/11/16 [History] Bifidobacterium Infantis [Align] 4 mg PO TID 12/11/16 [History] Diclofenac Potassium 50 mg PO BID 12/11/16 [History] Mv,Iron,Min/Folic Acid/Biotin [Hair, Skin & Nails Softgel] 66.7 mcg PO DAILY [History] Vitamin A 10,000 unit PO DAILY 12/11/16 [History] Vitamin B Complex [B Complex] 1 each PO DAILY 12/11/16 [History] metroNIDAZOLE [Flagyl] 500 mg PO TID 12/11/16 [History] 3 Allergy/AdvReac Type Severity Reaction Status Date / Time ciprofloxacin [From Cipro] AdvReac Rash Verified 03/05/15 12:08 Review of Systems All systems PM: A 10-system review of systems was performed and is negative for pertinent findings except as documented above in the HPI. - Constitutional anorexia, no chills, no fever(s), no lethargy - EENT Nose, mouth and throat: no dizziness, no sore throat - Cardiovascular no chest pain, no diaphoresis, no palpitations - Respiratory no cough, no dyspnea, no hemoptysis, no wheezing - Gastrointestinal bloating, change in bowel habits, constipation, cramping, loose stools, nausea, no coffee ground emesis, no hematochezia, no melena, no vomiting - Genitourinary Genitourinary: no difficulty voiding, no dysuria, no flank pain, no urinary incontinence Menstruation: post hysterectomy - Musculoskeletal arthralgias, no numbness, no tingling - Neurological no dizziness, no numbness, no paresthesias, no radicular pain, no syncope, no tingling - Psychiatric no memory loss - Hematologic/Lymphatic no easy bleeding, no easy bruising General Surgery Exam Initial Vital Signs Temp Pulse Resp BP Pulse Ox 98.1 F 79 18 145/88 98 12/11/16 19:23 12/11/16 19:23 12/11/16 19:23 12/11/16 19:23 12/11/16 19:23 - General physical appearance well developed, well nourished, no distress, obese - Eyes normal ocular movement - ENT atraumatic, normocephalic, CN 2-12 grossly intact - Neck trachea midline - Respiratory normal expansion, clear to auscultation - Cardiovascular Cardiovascular exam: Present: RRR, no murmurs/rubs/gallops - Abdomen Abdomen general surgery: Present: bowel sounds present, soft, tender Abdominal Tenderness: Present: LLQ - Integumentary Integumentary general surgery: Present: warm and dry, no abnormal pigmentation - Neurologic Present: CN 2-12 grossly intact, normal coordination, normal sensation - Musculoskeletal Present: normal posture - Psychiatric Psychiatric general surgery: Present: speech is normal, memory intact Results - Labs 12/12/16 05:43 12/12/16 05:43 Abnormal lab results RBC 5.10 M/mcL (3.82-4.97) H 12/12/16 05:43 MCV 79.8 fL (83.0-100.0) L 12/12/16 05:43 MCH 25.5 pg (28.0-33.3) L 12/12/16 05:43 RDW 18.7 % (11.5-14.5) H 12/12/16 05:43 MPV 9.0 fL (9.4-12.4) L 12/12/16 05:43 PT 12.7 Seconds (9.4-12.1) H 12/11/16 20:51 POC Glucose 100 (58-89) H 12/12/16 05:39 Ur Specific [place] > 1.030 (1.010-1.025) H 12/11/16 20:45 Urine Ketones 15 mg/dL (Negative) H 12/11/16 20:45 Urine Bilirubin Small (Negative) H 12/11/16 20:45 Ur Leukocyte Esterase Small (Negative) H 12/11/16 20:45 Urine Microscopic WBC 5-15 per hpf (0-3) H 12/11/16 20:45 Ur Squamous Epith Cells Many per lpf (None-Few) H 12/11/16 20:45 Urine Mucus Moderate (Few) H 12/11/16 20:45 Ur Culture Indicated? YES (NO) A 12/11/16 20:45 Diabetes panel 12/12/16 Range/Units 05:43 Sodium 141 (136-145) mEq/L Potassium 3.6 (3.5-4.5) mEq/L Chloride 107 (98-109) mEq/L Carbon Dioxide 25 (19-29) mEq/L BUN 12 (7-20) mg/dL Creatinine 0.67 (0.57-1.11) mg/dL Glucose 96 (70-99) mg/dL Calcium 9.1 (8.6-10.8) mg/dL Calcium panel 12/12/16 Range/Units 05:43 Calcium 9.1 (8.6-10.8) mg/dL Pituitary panel 12/12/16 Range/Units 05:43 Sodium 141 (136-145) mEq/L Potassium 3.6 (3.5-4.5) mEq/L Chloride 107 (98-109) mEq/L Carbon Dioxide 25 (19-29) mEq/L BUN 12 (7-20) mg/dL Creatinine 0.67 (0.57-1.11) mg/dL Glucose 96 (70-99) mg/dL Calcium 9.1 (8.6-10.8) mg/dL Adrenal panel 12/12/16 Range/Units 05:43 Sodium 141 (136-145) mEq/L Potassium 3.6 (3.5-4.5) mEq/L Chloride 107 (98-109) mEq/L Carbon Dioxide 25 (19-29) mEq/L BUN 12 (7-20) mg/dL Creatinine 0.67 (0.57-1.11) mg/dL Glucose 96 (70-99) mg/dL Calcium 9.1 (8.6-10.8) mg/dL All other labs normal. <Delfina Zimmerman - Last Filed: 12/12/16 17:33> Date of Encounter: 12/12/16 Assessment and Plan (1) Bowel obstruction Current Visit: Yes Status: Acute The assessment and plan as outlined above was discussed with the patient and/or family members who expressed understanding and agreement. All questions were answered. patients CT scan from this admission is very similar to her last CT scan in August - her sbo resolved with time during that admisison she feels better since Ngt placement continue npo, ivf hydration prn pain control OOB to chair and ambulate gi/dvt prophylaxis serial abdominal exams conservative management currently Qualifiers: Intestinal obstruction type: obstruction due to adhesions Qualified Code(s) : K56.5 - Intestinal adhesions [bands] with obstruction (postprocedural) ( postinfection) (2) DVT prophylaxis Current Visit: No Status: Acute The assessment and plan as outlined above was discussed with the patient and/or family members who expressed understanding and agreement. All questions were answered. (3) Hypothyroidism Current Visit: No Status: Chronic The assessment and plan as outlined above was discussed with the patient and/or family members who expressed understanding and agreement. All questions were answered. Qualifiers: Hypothyroidism type: unspecified Qualified Code(s): E03.9 - Hypothyroidism , unspecified (4) Abdominal pain Current Visit: No Status: Acute The assessment and plan as outlined above was discussed with the patient and/or family members who expressed understanding and agreement. All questions were answered. prn pain control Qualifiers: Abdominal location: generalized Qualified Code(s): R10.84 - Generalized abdominal pain History of Present Illness HPI: Ms. Leblanc is a 66 year old female who this past Friday (4 days ago) started having abdominal distention and generalized abdominal pain. She has had this multiple episodes before. She usually can take dulcolax and it will help. The abdominal pain is crampy and diffuse and comes and goes. Since admission and ngt placement her pain and distention have improved. She hasnt passed flatus since yesterday. She always has soft stools due to her history of subtotal colectomy for Hirshsprungs. She had nausea that became more severe and she decided to present to the ED. Last admission for sbo was August 2016 Past Med Surg [facility] HX - Past Medical History Source: patient Medical history: GERD, kidney stones, thyroid disease (hypothyroid), other (hx Hirshsprungs, hx SBO, hx maxilla infection, osteoarthritis) Psychiatric history: anxiety - Past Surgical History Surgical History: colectomy (subtotal colectomy (anus/rectum/sigmoid remain)), hip replacement (left hip replacement), knee replacement (right knee replacement ), orthopedic, other (left shoulder replacement x 2, ), other (maxillofacial surgery x2, dental implants, exlap and sbr, T&A) Review of Systems All systems PM: A 10-system review of systems was performed and is negative for pertinent findings except as documented above in the HPI. General Surgery Exam Initial Vital Signs Temp Pulse Resp BP Pulse Ox 98.1 F 79 18 145/88 98 12/11/16 19:23 12/11/16 19:23 12/11/16 19:23 12/11/16 19:23 12/11/16 19:23 - General physical appearance well developed, well nourished, no distress, obese - Eyes PERRL, normal ocular movement - ENT atraumatic, normocephalic - Respiratory normal expansion, normal respiratory effort - Cardiovascular Cardiovascular exam: Present: RRR - Abdomen Abdomen general surgery: Present: bowel sounds present, soft, distended, tender (mildly diffusely, no rebound or guarding) - Integumentary Integumentary general surgery: Present: warm and dry, no abnormal pigmentation - Neurologic Present: CN 2-12 grossly intact - Musculoskeletal Present: normal posture - Psychiatric Psychiatric general surgery: Present: A&Ox3, speech is normal Results - Labs 12/12/16 05:43 12/12/16 05:43 Abnormal lab results RBC 5.10 M/mcL (3.82-4.97) H 12/12/16 05:43 MCV 79.8 fL (83.0-100.0) L 12/12/16 05:43 MCH 25.5 pg (28.0-33.3) L 12/12/16 05:43 RDW 18.7 % (11.5-14.5) H 12/12/16 05:43 MPV 9.0 fL (9.4-12.4) L 12/12/16 05:43 PT 12.7 Seconds (9.4-12.1) H 12/11/16 20:51 POC Glucose 100 (58-89) H 12/12/16 05:39 Ur Specific [place] > 1.030 (1.010-1.025) H 12/11/16 20:45 Urine Ketones 15 mg/dL (Negative) H 12/11/16 20:45 Urine Bilirubin Small (Negative) H 12/11/16 20:45 Ur Leukocyte Esterase Small (Negative) H 12/11/16 20:45 Urine Microscopic WBC 5-15 per hpf (0-3) H 12/11/16 20:45 Ur Squamous Epith Cells Many per lpf (None-Few) H 12/11/16 20:45 Urine Mucus Moderate (Few) H 12/11/16 20:45 Ur Culture Indicated? YES (NO) A 12/11/16 20:45 Diabetes panel 12/12/16 Range/Units 05:43 Sodium 141 (136-145) mEq/L Potassium 3.6 (3.5-4.5) mEq/L Chloride 107 (98-109) mEq/L Carbon Dioxide 25 (19-29) mEq/L BUN 12 (7-20) mg/dL Creatinine 0.67 (0.57-1.11) mg/dL Glucose 96 (70-99) mg/dL Calcium 9.1 (8.6-10.8) mg/dL Calcium panel 12/12/16 Range/Units 05:43 Calcium 9.1 (8.6-10.8) mg/dL Pituitary panel 12/12/16 Range/Units 05:43 Sodium 141 (136-145) mEq/L Potassium 3.6 (3.5-4.5) mEq/L Chloride 107 (98-109) mEq/L Carbon Dioxide 25 (19-29) mEq/L BUN 12 (7-20) mg/dL Creatinine 0.67 (0.57-1.11) mg/dL Glucose 96 (70-99) mg/dL Calcium 9.1 (8.6-10.8) mg/dL Adrenal panel 12/12/16 Range/Units 05:43 Sodium 141 (136-145) mEq/L Potassium 3.6 (3.5-4.5) mEq/L Chloride 107 (98-109) mEq/L Carbon Dioxide 25 (19-29) mEq/L BUN 12 (7-20) mg/dL Creatinine 0.67 (0.57-1.11) mg/dL Glucose 96 (70-99) mg/dL Calcium 9.1 (8.6-10.8) mg/dL All other labs normal. - Imaging CT scan - abdomen: report reviewed, image reviewed CT scan - pelvis: report reviewed, image reviewed
--- NOTE | 2016-12-12 18:09 | Electrocardiograph Report ---
[place] [id number] Test Date: 2016-12-11 Pat Name: Yana Leblanc Department: 102 Room: [facility] Gender: F Welder Assistant: : 1950 Requested By: Anamaria Herring Order Number: [id number] Reading MD: Elma Ghotra Measurements Intervals [place] Rate: 99 P: 18 VT: 155 QRS: 40 QRSD: 74 T: 35 QT: 340 QTc: 396 Interpretive Statements SINUS RHYTHM NONSPECIFIC ST-T ABNORMALITY Electronically Signed On 12-12-2016 18:08:01 EDT by Elma Ghotra
[2016-12-12] MEDS: *HR* Heparin 5,000 UNIT/ML VIAL SQ SCH (18:17)
[2016-12-13] MEDS: *HR* HYDROmorphone (PF) 1 MG/ML SYRINGE IVP PRN ×4 (01:50→11:51)
[2016-12-13] MEDS: 0.9 % Sodium Chloride 1,000 ML IV SCH ×2 (02:25→23:24)
[2016-12-13 05:04] LABS: Basophils % 0.5 %; Eosinophils # 0.3 K/mcL (0.0-0.6); Eosinophils % 7.4 %; Lymphocytes % 27.7 %; Mean Corpuscular HGB Conc 31.7 g/dL (31.6-35.5); Mean Corpuscular Hemoglobin 26.3 pg (28.0-33.3); Mean Corpuscular Volume 82.9 fL (83.0-100.0); Mean Platelet Volume 9.6 fL (9.4-12.4); Monocytes # 0.4 K/mcL (0.0-1.3); Monocytes % 10.7 %; Platelet Count 231 K/mcL (140-400); Red Blood Count 4.22 M/mcL (3.82-4.97); Red Cell Distribution Width 18.5 % (11.5-14.5); Segmented Neutrophils % 53.7 %
[2016-12-13 05:05] LABS: Hemoglobin 11.1 g/dL (11.5-15.4)
[2016-12-13 05:17] LABS: BUN/Creatinine Ratio 11 (6-26); Blood Urea Nitrogen 7 mg/dL (7-20); Calcium 8.4 mg/dL (8.6-10.8); Carbon Dioxide 22 mEq/L (19-29); Chloride 112 mEq/L (98-109); Glucose 65 mg/dL (70-99); Magnesium 1.7 mg/dL (1.6-2.6); Osmolality,Calculated 292 (280-300); Phosphorous 3.3 mg/dL (2.3-4.7); Potassium 3.4 mEq/L (3.5-4.5); Sodium 143 mEq/L (136-145); eGFR For African Americans > 60 (> 60); eGFR For Non-African Americans > 60 (> 60)
[2016-12-13] MEDS: *HR* Heparin 5,000 UNIT/ML VIAL SQ SCH ×2 (05:44→18:50)
[2016-12-13] MEDS: Pantoprazole 40 MG VIAL IVP SCH (05:44)
[2016-12-13] MEDS: Levothyroxine Sodium 100 MCG VIAL IVP SCH (07:49)
[2016-12-13] MEDS: Lidocaine Viscous Oral Soln 15 ML SOLUTION MM SCH ×4 (07:49→21:45)
--- NOTE | 2016-12-13 11:45 | General Surgery Progress Note ---
<Saeid Nowak - Last Filed: 12/13/16 11:50> Date of Encounter: 12/13/16 Time of Encounter: 11:30 - Assessment and Plan (1) Partial small bowel obstruction Status: Acute Patient is greatly improved. She has no complaints of nausea or vomiting. + flatus with multiple loose stools. Patient tells me she wants to remove the NG tube herself. NGT draining 300ml in the last 24 hours. OK to remove NGT. Depending on how she does after NGT removal, we will consider advancing her diet. Continue supportive and pain management. Monitor with serial abdominal exams and a.m. labs. Continue conservative management. (2) Hypothyroidism Status: Chronic Continue Synthroid. Qualifiers: Hypothyroidism type: unspecified Qualified Code(s): E03.9 - Hypothyroidism , unspecified (3) DVT prophylaxis Status: Acute (4) Abdominal pain Status: Acute Improved. Plan per #1 Qualifiers: Abdominal location: generalized Qualified Code(s): R10.84 - Generalized abdominal pain Subjective Patient reports: no new complaints, feels better, pain is less, voiding w/o difficulty, flatus, bowel movement, afebrile Objective Vital Signs - Last 8 Hours Temp Pulse Resp BP Pulse Ox 12/13/16 10:20 98.3 F 83 16 129/70 97 12/13/16 06:29 98.5 F 78 16 129/76 95 Intake and Output 12/12/16 12/13/16 12/13/16 23:59 07:59 15:59 Intake Total 1000 / 1000 1000 / 1000 Output Total 0 / 0 300 / 300 Balance 1000 / 1000 700 / 700 Intake: IV Fluids 1000 / 1000 1000 / 1000 0.9 % Sodium Chloride 1, 1000 / 1000 1000 / 1000 000 ML @ 125 mls/hr IV . Q8H CALEB Rx#:[id number] Output: Urine 0 / 0 Gastric Drainage 300 / 300 Other: # Voids 1 Weight 94.6 kg Blood Glucose* 68 70 Patient Weight 12/13/16 23:59 Weight 94.6 kg - General physical appearance well developed, well nourished, no distress, obese - Eyes normal ocular movement - ENT atraumatic, normocephalic, CN 2-12 grossly intact - Neck Neck exam: trachea midline - Respiratory normal expansion, clear to auscultation - Cardiovascular Cardiovascular exam: Present: RRR, no murmurs/rubs/gallops - Abdomen Abdomen: Present: bowel sounds present, soft, tender Abdominal Tenderness: LLQ - Neurologic CN 2-12 grossly intact, normal coordination, normal sensation - Psychiatric speech is normal, memory intact - Labs 12/13/16 04:32 12/13/16 04:32 Diabetes panel 12/13/16 Range/Units 04:32 Sodium 143 (136-145) mEq/L Potassium 3.4 L (3.5-4.5) mEq/L Chloride 112 H (98-109) mEq/L Carbon Dioxide 22 (19-29) mEq/L BUN 7 (7-20) mg/dL Creatinine 0.63 (0.57-1.11) mg/dL Glucose 65 L (70-99) mg/dL Calcium 8.4 L (8.6-10.8) mg/dL Calcium panel 12/13/16 Range/Units 04:32 Calcium 8.4 L (8.6-10.8) mg/dL Phosphorus 3.3 (2.3-4.7) mg/dL Pituitary panel 12/13/16 Range/Units 04:32 Sodium 143 (136-145) mEq/L Potassium 3.4 L (3.5-4.5) mEq/L Chloride 112 H (98-109) mEq/L Carbon Dioxide 22 (19-29) mEq/L BUN 7 (7-20) mg/dL Creatinine 0.63 (0.57-1.11) mg/dL Glucose 65 L (70-99) mg/dL Calcium 8.4 L (8.6-10.8) mg/dL Adrenal panel 12/13/16 Range/Units 04:32 Sodium 143 (136-145) mEq/L Potassium 3.4 L (3.5-4.5) mEq/L Chloride 112 H (98-109) mEq/L Carbon Dioxide 22 (19-29) mEq/L BUN 7 (7-20) mg/dL Creatinine 0.63 (0.57-1.11) mg/dL Glucose 65 L (70-99) mg/dL Calcium 8.4 L (8.6-10.8) mg/dL Consult Discharge Plan - Plan Referrals: Delfina Zimmerman MD [Partnered Physician] - Ortega Elias Jr, MD [Primary Care Provider] - <Mik Zimmermanin Joe - Last Filed: 12/16/16 17:56> Date of Encounter: 12/13/16 - Assessment and Plan (1) Bowel obstruction Status: Acute bowel obstruction resolved, tolerating clears, having bm's no further abdominal pain Qualifiers: Intestinal obstruction type: obstruction due to adhesions Qualified Code(s) : K56.5 - Intestinal adhesions [bands] with obstruction (postprocedural) ( postinfection) (2) DVT prophylaxis Status: Acute (3) Hypothyroidism Status: Chronic Qualifiers: Hypothyroidism type: unspecified Qualified Code(s): E03.9 - Hypothyroidism , unspecified (4) Abdominal pain Status: Resolved Qualifiers: Abdominal location: generalized Qualified Code(s): R10.84 - Generalized abdominal pain Subjective Patient reports: no new complaints, feels better, tolerating liquids well, voiding w/o difficulty, flatus, bowel movement Objective - General physical appearance well nourished, no distress - Eyes PERRL, normal ocular movement - ENT normal mucosa, normocephalic - Neck Neck exam: trachea midline - Respiratory normal expansion, clear to auscultation - Cardiovascular Cardiovascular exam: Present: RRR - Abdomen Abdomen: Present: bowel sounds present, soft, non tender - Neurologic CN 2-12 grossly intact, normal coordination - Musculoskeletal normal posture - Psychiatric oriented to time, oriented to person, oriented to place, speech is normal, memory intact - Labs 12/13/16 04:32 12/13/16 04:32 - Attending Attestation I examined this patient and my medical decision-making was reviewed with the Resident Physician. I agree with the documented findings, disposition and treatment plan as described except to the extent set forth below.
[2016-12-14] MEDS: Pantoprazole 40 MG VIAL IVP SCH (05:37)
[2016-12-14] MEDS: *HR* Heparin 5,000 UNIT/ML VIAL SQ SCH (05:37)
[2016-12-14] MEDS: 0.9 % Sodium Chloride 1,000 ML IV SCH (07:02)
[2016-12-14] MEDS: Lidocaine Viscous Oral Soln 15 ML SOLUTION MM SCH ×2 (09:22→12:38)
[2016-12-14] MEDS: Levothyroxine Sodium 100 MCG VIAL IVP SCH (09:25)
[2016-12-14 11:31] VITALS: BP 144/72
--- NOTE | 2016-12-14 11:38 | Discharge Summary ---
<Arnol Costello - Last Filed: 12/14/16 11:36> Date of Encounter: 12/14/16 Time of Encounter: 11:36 - Discharge Diagnosis (1) Partial small bowel obstruction Priority: Primary Status: Resolved (2) Abdominal pain Priority: Primary Status: Resolved Qualifiers: Abdominal location: generalized Qualified Code(s): R10.84 - Generalized abdominal pain (3) Hypothyroidism Priority: Secondary Status: Chronic Qualifiers: Hypothyroidism type: unspecified Qualified Code(s): E03.9 - Hypothyroidism , unspecified (4) DVT prophylaxis Priority: Secondary Status: Acute - Discharge Medications Home Medications: Gabapentin [Neurontin] 300 mg PO TID 09/17/16 [History] Hyoscyamine SL [Levsin Sl] 0.125 mg SL TID PRN 09/17/16 [History] Lansoprazole [Prevacid] 30 mg PO DAILY 09/17/16 [History] Levothyroxine [Synthroid] 112 mcg PO 0630 09/17/16 [History] Lidocaine Patch [Lidoderm 5% patch] 1 each TP DAILY PRN 09/17/16 [History] Lubiprostone [Amitiza] 8 mcg PO BID 09/17/16 [History] Montelukast [Singulair] 10 mg PO HS 09/17/16 [History] OxyCODONE/APAP 7.5/325 [Percocet 7.5/325 MG] 1 tab PO Q6H PRN 09/17/16 [History] Polyethylene Glycol 3350 [Smoothlax] 17 gm PO BID PRN 09/17/16 [History] Venlafaxine XR (24 HR) [Effexor Xr] 37.5 mg PO DAILY 09/17/16 [History] Simethicone [Gas-X] 80 mg PO TID PRN #30 tab.chew 09/21/16 [Rx] Ascorbate Calcium [Vitamin C] 500 mg PO DAILY 12/11/16 [History] Bifidobacterium Infantis [Align] 4 mg PO TID 12/11/16 [History] Diclofenac Potassium 50 mg PO BID 12/11/16 [History] Mv,Iron,Min/Folic Acid/Biotin [Hair, Skin & Nails Softgel] 66.7 mcg PO DAILY [History] Vitamin A 10,000 unit PO DAILY 12/11/16 [History] Vitamin B Complex [B Complex] 1 each PO DAILY 12/11/16 [History] metroNIDAZOLE [Flagyl] 500 mg PO TID 12/11/16 [History] Allergies/Adverse Reactions: 3 Allergy/AdvReac Type Severity Reaction Status Date / Time ciprofloxacin [From Cipro] AdvReac Rash Verified 03/05/15 12:08 General Surgery Exam Initial Vital Signs Temp Pulse Resp BP Pulse Ox 98.1 F 79 18 145/88 98 12/11/16 19:23 12/11/16 19:23 12/11/16 19:23 12/11/16 19:23 12/11/16 19:23 - General physical appearance well developed, well nourished, no distress - Eyes normal ocular movement - ENT atraumatic, normocephalic - Cardiovascular Cardiovascular exam: Present: RRR - Abdomen Abdomen general surgery: Present: bowel sounds present, soft, non tender. Absent: guarding, rebound - Musculoskeletal Present: normal posture - Psychiatric Psychiatric general surgery: Present: appropriate, speech is normal Date of admission: 12/11/16 23:12 Primary care physician: Ortega Elias Jr, MD Consults: 12/12/16 00:41 Consult to Pastoral Services [CONS] Routine Comment: Consult to Vial Gauger [CONS] Routine Reason for SW Consult: Potential need for HH or ECF Discharging clinician: Arnol Costello Anticipated date of discharge: 12/14/16 - Patient Status Disposition: Home, Self-Care Condition: Good Functional capacity at discharge: independent ambulation Overall status at discharge: patient is progressing back to baseline - Discharge Instructions Follow Up With: Ortega Elias Jr, MD [Primary Care Provider] - Delfina Zimmerman MD [Partnered Physician] - - Diet and Activity Activity: resume usual activities as tolerated Diet: advance to your usual diet - Hospital Course Hospital course: Ms. 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 CT Abd/pelv showed obstruction at anastomosis in left mid/lower abdomen. The patient was started on conservative therapy - NPO, IVF, NGT. Her symptoms subsequently improved and she was passing gas and BMs the following day. NGT was discontinued and she was started on a diet. She has tolerated full liquids and her pain and nausea have resolved. She is discharged in stable condition with plans to follow up with Dr. Zimmerman as an outpatient. - Time Spent with Patient Total time spent providing and/or coordinating discharge services: Less than 30 minutes - Impressions ITS Impressions KUB X-Ray 12/12/16 00:00 IMPRESSION: NG tube tip in the gastric fundus but the side-port resides at the GE junction. Repositioning is recommended. D/ / 12/12/2016 07:12:27 Mykel Bella MD / [facility]amy Interpreting Provider: Mykel Bella MD X-Ray 12/12/16 00:59 IMPRESSION: Nasogastric tube tip is at the level of the distal esophagus/GE junction and further advancement is recommended. Multiple dilated loops of small bowel are noted in the upper abdomen. D/ / 12/12/2016 06:42:28 Ishan Hilton MD / [facility] Interpreting Provider: Ishan Hilton MD <Dinesh Case T - Last Filed: 12/14/16 14:03> Date of Encounter: 12/14/16 General Surgery Exam Initial Vital Signs Temp Pulse Resp BP Pulse Ox 98.1 F 79 18 145/88 98 12/11/16 19:23 12/11/16 19:23 12/11/16 19:23 12/11/16 19:23 12/11/16 19:23 Date of admission: 12/11/16 23:12 Primary care physician: Ortega Elias Jr, MD Consults: 12/12/16 00:41 Consult to Pastoral Services [CONS] Routine Comment: Consult to Vial Gauger [CONS] Routine Reason for SW Consult: Potential need for HH or ECF - Hospital Course Hospital course: Ms. Leblanc is a 66 year old female - Time Spent with Patient Total time spent providing and/or coordinating discharge services: - Impressions ITS Impressions KUB X-Ray 12/12/16 00:00 IMPRESSION: NG tube tip in the gastric fundus but the side-port resides at the GE junction. Repositioning is recommended. D/ / 12/12/2016 07:12:27 Mykel Bella MD / [facility]amy Interpreting Provider: Mykel Bella MD X-Ray 12/12/16 00:59 IMPRESSION: Nasogastric tube tip is at the level of the distal esophagus/GE junction and further advancement is recommended. Multiple dilated loops of small bowel are noted in the upper abdomen. D/ / 12/12/2016 06:42:28 Ishan Hilton MD / [facility] Interpreting Provider: Ishan Hilton MD - Attending Attestation I examined this patient and my medical decision-making was reviewed with the Resident Physician. I agree with the documented findings, disposition and treatment plan as described except to the extent set forth below. The patient is seen and evaluated on morning rounds with the resident. She is tolerating her diet. We will advance her diet today and discharge this afternoon if she tolerates her diet. Partial small bowel obstruction appears to have clinically resolved Dinesh Case MD FACS
== END 2016-12-14 15:35 | disposition home or self-care (01) | DRG 389 ==
LOC: EMEROO 18:28 → 3NENU 23:12
PROVIDERS: ADMIT Surgery; ATTEND Surgery

== ENCOUNTER 2020-04-26 15:22 | Observation (INO) ==
[2020-04-26] MEDS ORDERED: *HR* HYDROmorphone (PF) 1 MG/ML SYRINGE IVP ONE ×2 (15:50→20:44)
[2020-04-26] MEDS ORDERED: Ondansetron 4 MG/2 ML VIAL IVP ONE ×2 (15:50→20:44)
[2020-04-26 15:57] LABS: Basophils % 0.5 %; Eosinophils # 0.1 K/mcL (0.0-0.6); Eosinophils % 2.4 %; Hematocrit 43.6 % (35.3-44.9); Hemoglobin 13.7 g/dL (11.5-15.4); Immature Granulocytes % 0.7 % (0-4); Lymphocytes # 1.1 K/mcL (0.6-4.6); Lymphocytes % 19.8 %; Mean Corpuscular HGB Conc 31.4 g/dL (31.6-35.5); Mean Platelet Volume 8.9 fL (9.4-12.4); Monocytes # 0.4 K/mcL (0.0-1.3); Monocytes % 7.1 %; Platelet Count 268 K/mcL (140-400); Red Cell Distribution Width 13.9 % (11.5-14.5); Segmented Neutrophils % 69.5 %; White Blood Count 5.8 K/mcL (4.3-11.1)
[2020-04-26 16:17] LABS: Alanine Aminotransferase 13 Units/L (7-52); Albumin 4.1 g/dL (3.5-5.7); Albumin/Globulin Ratio 1.5 (1.1-2.2); Alkaline Phosphatase 79 Units/L (34-104); Amylase 33 Units/L (29-103); Aspartate Amino Transferase 15 Units/L (13-39); BUN/Creatinine Ratio 12 (6-26); Bilirubin,Direct 0.1 mg/dL (0.0-0.2); Bilirubin,Indirect 0.4 mg/dL (0.0-1.0); Bilirubin,Total 0.5 mg/dL (0.3-1.0); Blood Urea Nitrogen 11 mg/dL (8-23); Calcium 9.4 mg/dL (8.6-10.3); Carbon Dioxide 26 mEq/L (23-29); Chloride 108 mEq/L (98-107); Globulin 2.7 g/dL (2.4-3.5); Glucose 98 mg/dL (70-105); Lipase 42 Units/L (11-82); Osmolality,Calculated 289 (280-300); Potassium 3.7 mEq/L (3.5-5.1); Sodium 140 mEq/L (136-145); Total Protein 6.8 g/dL (6.4-8.9); eGFR For African Americans > 60 (> 60); eGFR For Non-African Americans > 60 (> 60)
[2020-04-26 17:18] LABS: Bilirubin,Urine Negative (Negative); Blood,Urine Large (Negative); Clarity,Urine Clear (Clear); Color,Urine Yellow (Yellow); Glucose,Urine (UA) Normal (Normal); Ketones,Urine Negative (Negative); Leukocyte Esterase,Urine Trace (Negative); Mucus,Urine Few per lpf (None-Few); Nitrite,Urine Negative (Negative); Protein,Urine 50 mg/dL (Neg-Trace); RBC,Urine TNTC per hpf (0-3); Specific Gravity,Urine 1.025 (1.010-1.025); Squamous Epithelial Cell,Urine Few per hpf (None-Few); Urobilinogen,Urine Normal (Normal); WBC,Urine 15-30 per hpf (0-3)
[2020-04-26] MEDS: 0.9 % Sodium Chloride 1,000 ML IVC SCH ×3 (19:27→23:32)
[2020-04-26] MEDS ORDERED: cefTRIAXone 1,000 MG in Water for inj. (sterile) 10 ML IVP ONE (20:51)
[2020-04-26] MEDS ORDERED: Ondansetron 4 MG/2 ML VIAL IVP PRN (22:30)
[2020-04-26] MEDS ORDERED: Naloxone 0.4 MG/ML INJ IVP PRN (22:30)
[2020-04-27] MEDS: 0.9 % Sodium Chloride 1,000 ML IVC SCH ×9 (05:56→11:29)
[2020-04-27] MEDS ORDERED: Gabapentin 100 MG CAPSULE PO PRN ×2 (10:08→18:36)
[2020-04-27] MEDS: (Lubiprostone [Amitiza] 8 MCG) PO SCH ×3 (11:23→21:09)
[2020-04-27 12:01] LABS: Hematocrit 36.9 % (35.3-44.9); Mean Corpuscular HGB Conc 30.6 g/dL (31.6-35.5); Mean Corpuscular Hemoglobin 27.4 pg (28.0-33.3); Mean Corpuscular Volume 89.6 fL (83.0-100.0); Mean Platelet Volume 9.1 fL (9.4-12.4); Platelet Count 201 K/mcL (140-400); Red Blood Count 4.12 M/mcL (3.82-4.97); Red Cell Distribution Width 13.8 % (11.5-14.5); White Blood Count 4.9 K/mcL (4.3-11.1)
[2020-04-27 12:03] LABS: Hemoglobin 11.3 g/dL (11.5-15.4)
[2020-04-27 12:22] LABS: BUN/Creatinine Ratio 15 (6-26); Blood Urea Nitrogen 11 mg/dL (8-23); Calcium 8.2 mg/dL (8.6-10.3); Carbon Dioxide 22 mEq/L (23-29); Chloride 113 mEq/L (98-107); Glucose 70 mg/dL (70-105); Magnesium 1.9 mg/dL (1.6-2.6); Osmolality,Calculated 290 (280-300); Phosphorous 3.6 mg/dL (2.7-4.5); Potassium 3.9 mEq/L (3.5-5.1); Sodium 141 mEq/L (136-145); eGFR For African Americans > 60 (> 60); eGFR For Non-African Americans > 60 (> 60)
[2020-04-27] MEDS ORDERED: *HR* Promethazine 25 MG/ML VIAL ONE (17:02)
[2020-04-27] MEDS ORDERED: *HR* FentaNYL (PF) 100 MCG/2 ML VIAL ONE (17:06)
[2020-04-27] MEDS ORDERED: Lidocaine -MPF 2% 2 ML VIAL ONE (17:06)
[2020-04-27] MEDS ORDERED: Dexamethasone 4 MG/ML VIAL ONE (17:06)
[2020-04-27] MEDS ORDERED: Ondansetron 4 MG/2 ML VIAL ONE (17:06)
[2020-04-27] MEDS ORDERED: Acetaminophen IV 1,000 MG/100 ML BAG IVPB ONE (17:24)
[2020-04-27] MEDS ORDERED: Ketorolac 30 MG/ML VIAL ONE (17:27)
[2020-04-27] MEDS ORDERED: Ondansetron 4 MG/2 ML VIAL IVP PRN (18:36)
[2020-04-27] MEDS ORDERED: Naloxone 0.4 MG/ML INJ IVP PRN (18:36)
[2020-04-27] MEDS: *HR* Heparin 5,000 UNIT/ML VIAL SQ SCH (21:11)
[2020-04-27] MEDS ORDERED: polyethylene glycoL 3350 17 GM POWD.PACK PO PRN (21:15)
[2020-04-27] MEDS ORDERED: *HR* Heparin 5,000 UNIT/ML VIAL SQ SCH (22:00)
[2020-04-28 05:08] LABS: Basophils % 0.4 %; Hematocrit 37.4 % (35.3-44.9); Hemoglobin 11.7 g/dL (11.5-15.4); Immature Granulocytes % 0.6 % (0-4); Lymphocytes # 0.4 K/mcL (0.6-4.6); Lymphocytes % 8.5 %; Mean Corpuscular HGB Conc 31.3 g/dL (31.6-35.5); Mean Corpuscular Volume 86.4 fL (83.0-100.0); Mean Platelet Volume 9.6 fL (9.4-12.4); Monocytes # 0.1 K/mcL (0.0-1.3); Monocytes % 2.3 %; Neutrophils # 4.6 K/mcL (1.6-8.9); Platelet Count 244 K/mcL (140-400); Red Blood Count 4.33 M/mcL (3.82-4.97); Red Cell Distribution Width 13.8 % (11.5-14.5); Segmented Neutrophils % 88.2 %; White Blood Count 5.2 K/mcL (4.3-11.1)
[2020-04-28 05:26] LABS: BUN/Creatinine Ratio 12 (6-26); Blood Urea Nitrogen 8 mg/dL (8-23); Calcium 8.8 mg/dL (8.6-10.3); Carbon Dioxide 24 mEq/L (23-29); Chloride 109 mEq/L (98-107); Glucose 118 mg/dL (70-105); Osmolality,Calculated 287 (280-300); Potassium 3.8 mEq/L (3.5-5.1); Sodium 139 mEq/L (136-145); eGFR For African Americans > 60 (> 60); eGFR For Non-African Americans > 60 (> 60)
[2020-04-28] MEDS: *HR* Heparin 5,000 UNIT/ML VIAL SQ SCH (06:06)
[2020-04-28] MEDS: (Lubiprostone [Amitiza] 8 MCG) PO SCH (07:28)
[2020-04-28] MEDS ORDERED: polyethylene glycoL 3350 17 GM POWD.PACK PO SCH ×2 (09:00)
[2020-04-28] MEDS ORDERED: Simethicone 80 MG TAB.CHEW PO PRN ×2 (10:08)
[2020-04-28 11:33] VITALS: BP 144/76
== END 2020-04-28 13:48 | disposition home or self-care (01) ==
LOC: EMEROOARM 15:22 → 3ANU 15:22
PROVIDERS: ADMIT Internal Medicine; ATTEND Internal Medicine

== ENCOUNTER 2021-09-20 10:35 | Inpatient (IN) ==
[2021-09-20 11:01] LABS: Bilirubin,Urine Small (Negative); Blood,Urine Negative (Negative); Clarity,Urine Clear (Clear); Color,Urine Yellow (Yellow); Glucose,Urine (UA) Normal (Normal); Ketones,Urine 60 mg/dL (Negative); Leukocyte Esterase,Urine Negative (Negative); Nitrite,Urine Negative (Negative); PH,Urine 6.5 pH Units (5.0-8.0); Protein,Urine Trace mg/dL (Neg-Trace); Specific Gravity,Urine 1.025 (1.010-1.025)
[2021-09-20] MEDS ORDERED: *HR* HYDROmorphone (PF) 1 MG/ML SYRINGE IVP ONE (12:07)
[2021-09-20] MEDS ORDERED: Ondansetron 4 MG/2 ML VIAL IVP ONE (12:07)
[2021-09-20] MEDS ORDERED: 0.9 % Sodium Chloride 1,000 ML IVC ONE (12:07)
[2021-09-20 12:38] LABS: Basophils % 0.5 %; Eosinophils # 0.1 K/mcL (0.0-0.6); Eosinophils % 1.4 %; Hematocrit 46.7 % (35.3-44.9); Hemoglobin 15.4 g/dL (11.5-15.4); Immature Granulocytes % 0.5 % (0-4); Lymphocytes # 1.1 K/mcL (0.6-4.6); Lymphocytes % 24.1 %; Mean Corpuscular Hemoglobin 26.6 pg (28.0-33.3); Mean Corpuscular Volume 80.7 fL (83.0-100.0); Mean Platelet Volume 9.4 fL (9.4-12.4); Monocytes # 0.7 K/mcL (0.0-1.3); Monocytes % 14.6 %; Neutrophils # 2.6 K/mcL (1.6-8.9); Platelet Count 341 K/mcL (140-400); Red Blood Count 5.79 M/mcL (3.82-4.97); Red Cell Distribution Width 15.6 % (11.5-14.5); Segmented Neutrophils % 58.9 %; White Blood Count 4.4 K/mcL (4.3-11.1)
[2021-09-20 13:04] LABS: BUN/Creatinine Ratio 29 (6-26); Blood Urea Nitrogen 20 mg/dL (8-23); Calcium 9.6 mg/dL (8.6-10.3); Carbon Dioxide 24 mEq/L (23-29); Chloride 100 mEq/L (98-107); Glucose 80 mg/dL (70-105); Magnesium 1.9 mg/dL (1.6-2.6); Osmolality,Calculated 284 (280-300); Potassium 3.7 mEq/L (3.5-5.1); Sodium 136 mEq/L (136-145); eGFR For African Americans > 60 (> 60); eGFR For Non-African Americans > 60 (> 60)
[2021-09-20] MEDS ORDERED: Acetaminophen 325 MG TABLET PO PRN (14:19)
[2021-09-20] MEDS ORDERED: Naloxone 0.4 MG/ML INJ IVP PRN (14:19)
[2021-09-20] MEDS ORDERED: GI Cocktail 40 ML EACH PO ONE (15:53)
[2021-09-20] MEDS ORDERED: Lidocaine Jelly 11 ml Syringe MM ONE (15:53)
[2021-09-20] MEDS: Famotidine 20 MG TABLET PO SCH (17:07)
[2021-09-20] MEDS: 0.9 % Sodium Chloride 1,000 ML IVC SCH (17:15)
[2021-09-20] MEDS: Morphine Sulfate 2 MG/ML SYRINGE IVP PRN (19:06)
[2021-09-20] MEDS: Lubiprostone [Amitiza] 8 MCG Capsule PO SCH (20:57)
[2021-09-20 22:18] LABS: Bilirubin,Urine Small (Negative); Blood,Urine Negative (Negative); Clarity,Urine Clear (Clear); Color,Urine Yellow (Yellow); Glucose,Urine (UA) Normal (Normal); Ketones,Urine 40 mg/dL (Negative); Leukocyte Esterase,Urine Trace (Negative); Mucus,Urine Few per lpf (None-Few); Nitrite,Urine Negative (Negative); Protein,Urine Trace mg/dL (Neg-Trace); RBC,Urine 0-3 per hpf (0-3); Specific Gravity,Urine 1.027 (1.010-1.025); Squamous Epithelial Cell,Urine Moderate per hpf (None-Few)
[2021-09-20] MEDS: Pantoprazole 40 MG VIAL IVP SCH (22:23)
[2021-09-21] MEDS: Hyoscyamine SL 0.125 MG TAB.SUBL PO PRN ×2 (02:48→16:05)
[2021-09-21] MEDS: Morphine Sulfate 2 MG/ML SYRINGE IVP PRN ×2 (04:56→16:05)
[2021-09-21] MEDS: *HR* Enoxaparin 40 MG/0.4 ML SYRINGE SQ SCH (04:57)
[2021-09-21] MEDS: Pantoprazole 40 MG VIAL IVP SCH ×2 (04:57→16:06)
[2021-09-21 05:39] LABS: Hematocrit 39.8 % (35.3-44.9); Mean Corpuscular HGB Conc 31.2 g/dL (31.6-35.5); Mean Corpuscular Volume 83.4 fL (83.0-100.0); Mean Platelet Volume 9.2 fL (9.4-12.4); Platelet Count 255 K/mcL (140-400); Red Blood Count 4.77 M/mcL (3.82-4.97); Red Cell Distribution Width 15.2 % (11.5-14.5); White Blood Count 4.5 K/mcL (4.3-11.1)
[2021-09-21 05:42] LABS: Hemoglobin 12.4 g/dL (11.5-15.4)
[2021-09-21 06:06] LABS: Alanine Aminotransferase 11 Units/L (7-52); Albumin 3.3 g/dL (3.5-5.7); Albumin/Globulin Ratio 1.7 (1.1-2.2); Alkaline Phosphatase 86 Units/L (34-104); Aspartate Amino Transferase 14 Units/L (13-39); BUN/Creatinine Ratio 22 (6-26); Bilirubin,Total 0.5 mg/dL (0.3-1.0); Blood Urea Nitrogen 14 mg/dL (8-23); Calcium 8.4 mg/dL (8.6-10.3); Carbon Dioxide 21 mEq/L (23-29); Chloride 107 mEq/L (98-107); Globulin 1.9 g/dL (2.4-3.5); Glucose 50 mg/dL (70-105); Magnesium 1.7 mg/dL (1.6-2.6); Osmolality,Calculated 286 (280-300); Potassium 3.3 mEq/L (3.5-5.1); Sodium 139 mEq/L (136-145); Total Protein 5.2 g/dL (6.4-8.9); eGFR For African Americans > 60 (> 60); eGFR For Non-African Americans > 60 (> 60)
[2021-09-21] MEDS ORDERED: Levothyroxine 25 MCG TABLET PO SCH (06:30)
[2021-09-21] MEDS: 0.9 % Sodium Chloride 1,000 ML IVC SCH ×4 (08:30→20:10)
[2021-09-21] MEDS ORDERED: ZINC GLUCONATE 10 MG PO SCH (09:00)
[2021-09-21] MEDS ORDERED: NON-FORMULARY MEDICATION 1 EACH EACH (Biotin 1 MG Tablet) PO SCH (09:00)
[2021-09-21] MEDS ORDERED: NON-FORMULARY MEDICATION 1 EACH EACH (Potassium 99 MG Tablet) PO SCH (09:00)
[2021-09-21] MEDS: Lubiprostone [Amitiza] 8 MCG Capsule PO SCH ×2 (09:00→20:09)
[2021-09-21] MEDS: Ondansetron 4 MG/2 ML VIAL IVP PRN ×2 (10:30→18:42)
[2021-09-21] MEDS: Loratadine/Pseudophed (12 HR) 1 EACH TABLET PO SCH (12:46)
[2021-09-21] MEDS: Ascorbic Acid 500 MG TABLET PO SCH (12:47)
[2021-09-21] MEDS: Magnesium Oxide 400 MG TABLET PO SCH (12:51)
[2021-09-21] MEDS: Famotidine 20 MG TABLET PO SCH ×2 (12:51→18:58)
[2021-09-21] MEDS: Cholecalciferol (D-3) 1,000 UNIT (25MCG) TABLET PO SCH (12:51)
[2021-09-21] MEDS ORDERED: Saliva Stimulant 44.3ml BOTTLE PO PRN (16:27)
[2021-09-21] MEDS ORDERED: cefOXitin 1,000 MG in 0.9 % Sodium Chloride 10 ML IVP ONE ×2 (17:14→23:00)
[2021-09-21] MEDS ORDERED: Promethazine 6.25 MG in Water for inj. (sterile) 20 ML IVPB PRN (20:05)
[2021-09-21] MEDS ORDERED: Ondansetron 4 MG/2 ML VIAL IVP PRN (20:05)
[2021-09-21] MEDS ORDERED: *HR* OxyCODONE Immed Rel 5 MG TABLET PO PRN (20:05)
[2021-09-21] MEDS ORDERED: *HR* HYDROmorphone PF 0.5 MG/0.5 ML SYRINGE IVP PRN (20:05)
[2021-09-21] MEDS ORDERED: D5% in Water 250 ML ONE (20:26)
[2021-09-21] MEDS ORDERED: *HR* Dextrose 50 % in Water (Vial) 50 ML VIAL ONE (20:28)
[2021-09-21] MEDS ORDERED: *HR* Rocuronium Bromide 50 MG/5 ML VIAL ONE ×2 (20:40→23:25)
[2021-09-21] MEDS ORDERED: Lidocaine HCL 4 ML Topical Solution (Laryng-O-Jet Kit Sterile Pak) TP ONE (20:40)
[2021-09-21] MEDS ORDERED: Ondansetron 4 MG/2 ML VIAL ONE (20:40)
[2021-09-21] MEDS ORDERED: Lidocaine -MPF 2% 2 ML VIAL ONE ×2 (20:40→23:57)
[2021-09-21] MEDS ORDERED: *HR* Succinylcholine 200 MG/10 ML VIAL IVP ONE (20:40)
[2021-09-21] MEDS ORDERED: *HR* FentaNYL (PF) 100 MCG/2 ML VIAL ONE (20:47)
[2021-09-21] MEDS ORDERED: *HR* Propofol 200 MG/20 ML VIAL IVP ONE (20:48)
[2021-09-21] MEDS ORDERED: Ketamine HCL *QUVA* 50mg (1mL) SYRINGE ONE (20:55)
[2021-09-21] MEDS ORDERED: *HR* HYDROMORPHONE 2 MG/ML VIAL ONE (20:55)
[2021-09-21] MEDS ORDERED: Lidocaine/EPI 1:100k 1% 50 ML VIAL ONE (20:58)
[2021-09-21] MEDS ORDERED: EPHEDrine 50 MG/ML VIAL ONE (22:08)
[2021-09-21] MEDS ORDERED: CefOXitin 2,000 MG VIAL ONE (22:28)
[2021-09-22] MEDS ORDERED: *HR* FentaNYL (PF) 100 MCG/2 ML VIAL ONE (00:09)
[2021-09-22] MEDS ORDERED: Ketorolac 30 MG/ML VIAL IVP ONE (00:49)
[2021-09-22] MEDS ORDERED: Acetaminophen IV 1,000 MG/100 ML BAG IVPB ONE ×2 (01:09→01:12)
[2021-09-22 04:03] LABS: Basophils % 0.5 %; Hematocrit 43.9 % (35.3-44.9); Hemoglobin 13.9 g/dL (11.5-15.4); Immature Granulocytes % 1.1 % (0-4); Lymphocytes # 0.4 K/mcL (0.6-4.6); Lymphocytes % 6.9 %; Mean Corpuscular HGB Conc 31.7 g/dL (31.6-35.5); Mean Corpuscular Hemoglobin 26.3 pg (28.0-33.3); Mean Platelet Volume 9.1 fL (9.4-12.4); Monocytes # 0.6 K/mcL (0.0-1.3); Monocytes % 10.2 %; Neutrophils # 4.5 K/mcL (1.6-8.9); Platelet Count 269 K/mcL (140-400); Red Blood Count 5.29 M/mcL (3.82-4.97); Red Cell Distribution Width 15.6 % (11.5-14.5); Segmented Neutrophils % 81.3 %; White Blood Count 5.5 K/mcL (4.3-11.1)
[2021-09-22] MEDS: *HR* Enoxaparin 40 MG/0.4 ML SYRINGE SQ SCH (05:08)
[2021-09-22] MEDS: Pantoprazole 40 MG VIAL IVP SCH ×2 (05:08→16:53)
[2021-09-22] MEDS: 0.9 % Sodium Chloride 1,000 ML IVC SCH ×3 (05:08→16:52)
[2021-09-22] MEDS: cefOXitin 1,000 MG in Water for inj. (sterile) 10 ML IVP SCH ×2 (08:45→16:53)
[2021-09-22] MEDS: Magnesium Oxide 400 MG TABLET PO SCH (10:03)
[2021-09-22] MEDS: Loratadine/Pseudophed (12 HR) 1 EACH TABLET PO SCH (10:03)
[2021-09-22] MEDS: Famotidine 20 MG TABLET PO SCH ×2 (10:03→15:49)
[2021-09-22] MEDS: Ascorbic Acid 500 MG TABLET PO SCH (10:03)
[2021-09-22] MEDS: Lubiprostone [Amitiza] 8 MCG Capsule PO SCH ×2 (10:03→20:07)
[2021-09-22] MEDS: Cholecalciferol (D-3) 1,000 UNIT (25MCG) TABLET PO SCH (10:03)
[2021-09-22] MEDS: Morphine Sulfate 2 MG/ML SYRINGE IVP PRN (14:52)
[2021-09-22] MEDS: Ketorolac 30 MG/ML VIAL IVP PRN (18:47)
[2021-09-23] MEDS: cefOXitin 1,000 MG in Water for inj. (sterile) 10 ML IVP SCH ×2 (01:15→09:00)
[2021-09-23] MEDS: 0.9 % Sodium Chloride 1,000 ML IVC SCH ×3 (01:28→19:16)
[2021-09-23] MEDS: Ketorolac 30 MG/ML VIAL IVP PRN ×3 (01:48→19:27)
[2021-09-23 01:53] LABS: Basophils % 0.6 %; Eosinophils # 0.2 K/mcL (0.0-0.6); Eosinophils % 3.9 %; Hematocrit 40.5 % (35.3-44.9); Hemoglobin 12.5 g/dL (11.5-15.4); Immature Granulocytes % 1.2 % (0-4); Lymphocytes # 0.9 K/mcL (0.6-4.6); Lymphocytes % 17.3 %; Mean Corpuscular HGB Conc 30.9 g/dL (31.6-35.5); Mean Corpuscular Hemoglobin 26.7 pg (28.0-33.3); Mean Corpuscular Volume 86.4 fL (83.0-100.0); Mean Platelet Volume 9.7 fL (9.4-12.4); Monocytes # 0.4 K/mcL (0.0-1.3); Monocytes % 8.6 %; Neutrophils # 3.5 K/mcL (1.6-8.9); Platelet Count 198 K/mcL (140-400); Red Blood Count 4.69 M/mcL (3.82-4.97); Red Cell Distribution Width 16.1 % (11.5-14.5); Segmented Neutrophils % 68.4 %; White Blood Count 5.1 K/mcL (4.3-11.1)
[2021-09-23 02:13] LABS: Alanine Aminotransferase 10 Units/L (7-52); Albumin 2.8 g/dL (3.5-5.7); Albumin/Globulin Ratio 1.3 (1.1-2.2); Alkaline Phosphatase 68 Units/L (34-104); Aspartate Amino Transferase 13 Units/L (13-39); BUN/Creatinine Ratio 8 (6-26); Bilirubin,Total 0.4 mg/dL (0.3-1.0); Blood Urea Nitrogen 5 mg/dL (8-23); Calcium 8.3 mg/dL (8.6-10.3); Carbon Dioxide 19 mEq/L (23-29); Chloride 109 mEq/L (98-107); Globulin 2.1 g/dL (2.4-3.5); Glucose 71 mg/dL (70-105); Osmolality,Calculated 286 (280-300); Potassium 3.3 mEq/L (3.5-5.1); Sodium 140 mEq/L (136-145); Total Protein 4.9 g/dL (6.4-8.9); eGFR For African Americans > 60 (> 60); eGFR For Non-African Americans > 60 (> 60)
[2021-09-23] MEDS: Pantoprazole 40 MG VIAL IVP SCH ×2 (05:42→17:31)
[2021-09-23] MEDS: *HR* Enoxaparin 40 MG/0.4 ML SYRINGE SQ SCH (05:43)
[2021-09-23] MEDS: Cholecalciferol (D-3) 1,000 UNIT (25MCG) TABLET PO SCH (09:00)
[2021-09-23] MEDS: Famotidine 20 MG TABLET PO SCH ×2 (09:00→17:32)
[2021-09-23] MEDS: Ascorbic Acid 500 MG TABLET PO SCH (09:00)
[2021-09-23] MEDS: Magnesium Oxide 400 MG TABLET PO SCH (09:00)
[2021-09-23] MEDS: Loratadine/Pseudophed (12 HR) 1 EACH TABLET PO SCH (09:00)
[2021-09-23] MEDS: Lubiprostone [Amitiza] 8 MCG Capsule PO SCH ×2 (09:03→19:17)
[2021-09-23] MEDS ORDERED: Levothyroxine Sodium 100 MCG VIAL IVP SCH (14:30)
[2021-09-23] MEDS: Levothyroxine Sodium 100 MCG VIAL IVP SCH (17:31)
[2021-09-24] MEDS: Ketorolac 30 MG/ML VIAL IVP PRN ×2 (02:37→21:50)
[2021-09-24 05:55] LABS: Basophils % 0.4 %; Eosinophils # 0.3 K/mcL (0.0-0.6); Eosinophils % 7.1 %; Hematocrit 33.7 % (35.3-44.9); Immature Granulocytes % 2.8 % (0-4); Lymphocytes # 0.9 K/mcL (0.6-4.6); Lymphocytes % 19.2 %; Mean Corpuscular HGB Conc 31.5 g/dL (31.6-35.5); Mean Corpuscular Hemoglobin 26.1 pg (28.0-33.3); Mean Platelet Volume 9.1 fL (9.4-12.4); Monocytes # 0.3 K/mcL (0.0-1.3); Monocytes % 7.3 %; Platelet Count 203 K/mcL (140-400); Red Blood Count 4.06 M/mcL (3.82-4.97); Red Cell Distribution Width 15.8 % (11.5-14.5); Segmented Neutrophils % 63.2 %; White Blood Count 4.7 K/mcL (4.3-11.1)
[2021-09-24 06:01] LABS: Hemoglobin 10.6 g/dL (11.5-15.4)
[2021-09-24 06:15] LABS: Alanine Aminotransferase 10 Units/L (7-52); Albumin 2.6 g/dL (3.5-5.7); Albumin/Globulin Ratio 1.5 (1.1-2.2); Alkaline Phosphatase 59 Units/L (34-104); Aspartate Amino Transferase 11 Units/L (13-39); BUN/Creatinine Ratio 12 (6-26); Bilirubin,Total 0.4 mg/dL (0.3-1.0); Blood Urea Nitrogen 5 mg/dL (8-23); Carbon Dioxide 19 mEq/L (23-29); Chloride 111 mEq/L (98-107); Globulin 1.7 g/dL (2.4-3.5); Glucose 51 mg/dL (70-105); Magnesium 1.5 mg/dL (1.6-2.6); Osmolality,Calculated 285 (280-300); Phosphorous 2.2 mg/dL (2.7-4.5); Potassium 3.2 mEq/L (3.5-5.1); Sodium 140 mEq/L (136-145); Total Protein 4.3 g/dL (6.4-8.9); eGFR For African Americans > 60 (> 60); eGFR For Non-African Americans > 60 (> 60)
[2021-09-24] MEDS: Levothyroxine Sodium 100 MCG VIAL IVP SCH (06:31)
[2021-09-24] MEDS: Pantoprazole 40 MG VIAL IVP SCH ×2 (06:34→18:46)
[2021-09-24] MEDS: 0.9 % Sodium Chloride 1,000 ML IVC SCH (06:35)
[2021-09-24] MEDS: *HR* Enoxaparin 40 MG/0.4 ML SYRINGE SQ SCH (06:35)
[2021-09-24] MEDS ORDERED: Magnesium Sulfate 1 GM/102 ML PIGGYBACK IVPB ONE (08:11)
[2021-09-24] MEDS: Ascorbic Acid 500 MG TABLET PO SCH (10:09)
[2021-09-24] MEDS: Cholecalciferol (D-3) 1,000 UNIT (25MCG) TABLET PO SCH (10:09)
[2021-09-24] MEDS: Magnesium Oxide 400 MG TABLET PO SCH (10:09)
[2021-09-24] MEDS: Loratadine/Pseudophed (12 HR) 1 EACH TABLET PO SCH (10:09)
[2021-09-24] MEDS: Lubiprostone [Amitiza] 8 MCG Capsule PO SCH ×2 (10:11→21:52)
[2021-09-24] MEDS: Famotidine 20 MG TABLET PO SCH ×2 (10:28→18:45)
[2021-09-24] MEDS ORDERED: D10% in Water 500 ML IVC PRN (10:47)
[2021-09-24] MEDS ORDERED: Potassium Phosphate 44 MEQ in 0.9 % Sodium Chloride 250 ML IVPB ONE (11:25)
[2021-09-24] MEDS: Morphine Sulfate 2 MG/ML SYRINGE IVP PRN (11:33)
[2021-09-24] MEDS: Ondansetron 4 MG/2 ML VIAL IVP PRN (12:11)
[2021-09-24] MEDS: D5% in Lactated Ringers 1,000 ML IVC SCH (15:24)
[2021-09-24] MEDS ORDERED: Clinimix E 5%-15% SOLUTION 2,000 ML with MVI, adult with vitamin K 10 ML IVC SCH (17:00)
[2021-09-25] MEDS: D5% in Lactated Ringers 1,000 ML IVC SCH ×3 (02:23→22:49)
[2021-09-25 02:59] LABS: Basophils % 0.9 %; Eosinophils # 0.3 K/mcL (0.0-0.6); Eosinophils % 5.8 %; Hemoglobin 11.8 g/dL (11.5-15.4); Immature Granulocytes % 4.8 % (0-4); Lymphocytes # 0.8 K/mcL (0.6-4.6); Lymphocytes % 18.9 %; Mean Corpuscular HGB Conc 31.9 g/dL (31.6-35.5); Mean Corpuscular Hemoglobin 26.5 pg (28.0-33.3); Mean Platelet Volume 9.4 fL (9.4-12.4); Monocytes # 0.3 K/mcL (0.0-1.3); Monocytes % 6.9 %; Neutrophils # 2.7 K/mcL (1.6-8.9); Platelet Count 236 K/mcL (140-400); Red Blood Count 4.46 M/mcL (3.82-4.97); Red Cell Distribution Width 15.6 % (11.5-14.5); Segmented Neutrophils % 62.7 %; White Blood Count 4.3 K/mcL (4.3-11.1)
[2021-09-25 03:09] LABS: Alanine Aminotransferase 11 Units/L (7-52); Albumin 2.8 g/dL (3.5-5.7); Albumin/Globulin Ratio 1.3 (1.1-2.2); Alkaline Phosphatase 63 Units/L (34-104); Aspartate Amino Transferase 11 Units/L (13-39); BUN/Creatinine Ratio 9 (6-26); Bilirubin,Total 0.3 mg/dL (0.3-1.0); Blood Urea Nitrogen 4 mg/dL (8-23); Calcium 8.3 mg/dL (8.6-10.3); Carbon Dioxide 24 mEq/L (23-29); Chloride 109 mEq/L (98-107); Globulin 2.2 g/dL (2.4-3.5); Glucose 141 mg/dL (70-105); Magnesium 1.6 mg/dL (1.6-2.6); Osmolality,Calculated 287 (280-300); Phosphorous 2.8 mg/dL (2.7-4.5); Potassium 3.5 mEq/L (3.5-5.1); Sodium 139 mEq/L (136-145); eGFR For African Americans > 60 (> 60); eGFR For Non-African Americans > 60 (> 60)
[2021-09-25] MEDS: *HR* Enoxaparin 40 MG/0.4 ML SYRINGE SQ SCH (05:04)
[2021-09-25] MEDS: Levothyroxine Sodium 100 MCG VIAL IVP SCH (05:04)
[2021-09-25] MEDS: Pantoprazole 40 MG VIAL IVP SCH ×2 (05:05→18:20)
[2021-09-25] MEDS: Magnesium Oxide 400 MG TABLET PO SCH (09:11)
[2021-09-25] MEDS: Ascorbic Acid 500 MG TABLET PO SCH (09:11)
[2021-09-25] MEDS: Loratadine/Pseudophed (12 HR) 1 EACH TABLET PO SCH (09:11)
[2021-09-25] MEDS: Cholecalciferol (D-3) 1,000 UNIT (25MCG) TABLET PO SCH (09:12)
[2021-09-25] MEDS: Lubiprostone [Amitiza] 8 MCG Capsule PO SCH ×2 (09:12→20:24)
[2021-09-25] MEDS: Famotidine 20 MG TABLET PO SCH ×2 (09:12→18:20)
[2021-09-25] MEDS ORDERED: Clinimix E 5%-15% SOLUTION 2,000 ML with MVI, adult with vitamin K 10 ML IVC SCH (17:00)
[2021-09-25] MEDS: Ketorolac 30 MG/ML VIAL IVP PRN (20:24)
[2021-09-26 04:50] LABS: Basophils % 0.7 %; Eosinophils # 0.2 K/mcL (0.0-0.6); Eosinophils % 4.9 %; Hematocrit 34.2 % (35.3-44.9); Immature Granulocytes % 3.8 % (0-4); Lymphocytes # 0.9 K/mcL (0.6-4.6); Lymphocytes % 19.1 %; Mean Corpuscular HGB Conc 32.2 g/dL (31.6-35.5); Mean Corpuscular Hemoglobin 26.4 pg (28.0-33.3); Mean Platelet Volume 9.4 fL (9.4-12.4); Monocytes # 0.4 K/mcL (0.0-1.3); Monocytes % 7.8 %; Neutrophils # 2.8 K/mcL (1.6-8.9); Platelet Count 204 K/mcL (140-400); Red Blood Count 4.17 M/mcL (3.82-4.97); Red Cell Distribution Width 15.6 % (11.5-14.5); Segmented Neutrophils % 63.7 %; White Blood Count 4.5 K/mcL (4.3-11.1)
[2021-09-26 05:16] LABS: Alanine Aminotransferase 10 Units/L (7-52); Albumin 2.6 g/dL (3.5-5.7); Albumin/Globulin Ratio 1.3 (1.1-2.2); Alkaline Phosphatase 57 Units/L (34-104); Aspartate Amino Transferase 14 Units/L (13-39); BUN/Creatinine Ratio 9 (6-26); Bilirubin,Total 0.3 mg/dL (0.3-1.0); Blood Urea Nitrogen 4 mg/dL (8-23); Calcium 8.2 mg/dL (8.6-10.3); Carbon Dioxide 26 mEq/L (23-29); Chloride 112 mEq/L (98-107); Glucose 120 mg/dL (70-105); Magnesium 1.6 mg/dL (1.6-2.6); Osmolality,Calculated 294 (280-300); Potassium 3.4 mEq/L (3.5-5.1); Sodium 143 mEq/L (136-145); Total Protein 4.6 g/dL (6.4-8.9); eGFR For African Americans > 60 (> 60); eGFR For Non-African Americans > 60 (> 60)
[2021-09-26] MEDS: Pantoprazole 40 MG VIAL IVP SCH (05:55)
[2021-09-26] MEDS: Levothyroxine Sodium 100 MCG VIAL IVP SCH (05:55)
[2021-09-26] MEDS: *HR* Enoxaparin 40 MG/0.4 ML SYRINGE SQ SCH (05:56)
[2021-09-26 07:25] VITALS: PULSE 87; TEMP 98.1
[2021-09-26] MEDS: Famotidine 20 MG TABLET PO SCH (07:51)
[2021-09-26] MEDS: Ascorbic Acid 500 MG TABLET PO SCH (07:51)
[2021-09-26] MEDS: Cholecalciferol (D-3) 1,000 UNIT (25MCG) TABLET PO SCH (07:51)
[2021-09-26] MEDS: Magnesium Oxide 400 MG TABLET PO SCH (07:51)
[2021-09-26] MEDS: Loratadine/Pseudophed (12 HR) 1 EACH TABLET PO SCH (07:51)
[2021-09-26] MEDS: Lubiprostone [Amitiza] 8 MCG Capsule PO SCH (07:51)
[2021-09-26] MEDS: D5% in Lactated Ringers 1,000 ML IVC SCH (10:37)
[2021-09-26 10:56] VITALS: BP 138/86; O2SAT 97
== END 2021-09-26 16:09 | disposition home or self-care (01) | DRG 357 ==
LOC: 3BNU 10:35 → EMEROOARM 10:35 → SUATTDRO 14:43 → 3BNU 16:06 → SUATTDRO 09-22 17:35
PROVIDERS: ADMIT Internal Medicine; ATTEND Internal Medicine

== ENCOUNTER 2021-12-26 15:02 | Observation (INO) ==
[2021-12-26] MEDS ORDERED: 0.9 % Sodium Chloride 1,000 ML IVC ONE (16:53)
[2021-12-26] MEDS ORDERED: Ketorolac 30 MG/ML VIAL IVP ONE (16:53)
[2021-12-26] MEDS ORDERED: Ondansetron 4 MG/2 ML VIAL IVP ONE (16:53)
[2021-12-26] MEDS ORDERED: Iopamidol - 370 500 ML MLS IVP ONE (16:54)
[2021-12-26 17:07] LABS: Basophils # 0.1 K/mcL (0.0-0.2); Basophils % 0.7 %; Eosinophils # 0.1 K/mcL (0.0-0.6); Eosinophils % 0.7 %; Hematocrit 53.2 % (35.3-44.9); Hemoglobin 17.3 g/dL (11.5-15.4); Immature Granulocytes % 0.3 % (0-4); Lymphocytes # 1.2 K/mcL (0.6-4.6); Lymphocytes % 17.2 %; Mean Corpuscular HGB Conc 32.5 g/dL (31.6-35.5); Mean Corpuscular Hemoglobin 26.7 pg (28.0-33.3); Mean Corpuscular Volume 82.1 fL (83.0-100.0); Mean Platelet Volume 9.8 fL (9.4-12.4); Neutrophils # 4.7 K/mcL (1.6-8.9); Platelet Count 484 K/mcL (140-400); Red Blood Count 6.48 M/mcL (3.82-4.97); Red Cell Distribution Width 16.1 % (11.5-14.5); Segmented Neutrophils % 67.1 %
[2021-12-26 17:27] LABS: Albumin 4.9 g/dL (3.5-5.7); Albumin/Globulin Ratio 1.4 (1.1-2.2); Bilirubin,Direct 0.3 mg/dL (0.0-0.2); Bilirubin,Indirect 0.8 mg/dL (0.0-1.0); Bilirubin,Total 1.1 mg/dL (0.3-1.0); Calcium 9.9 mg/dL (8.6-10.3); Globulin 3.6 g/dL (2.4-3.5); Potassium 3.9 mEq/L (3.5-5.1); Total Protein 8.5 g/dL (6.4-8.9)
[2021-12-26 17:35] LABS: Bacteria,Urine Few per hpf (None-Few); Bilirubin,Urine Small (Negative); Blood,Urine Negative (Negative); Clarity,Urine Turbid (Clear); Color,Urine Yellow (Yellow); Glucose,Urine (UA) Normal (Normal); Hyaline Casts,Urine Many per lpf (None Seen); Ketones,Urine Negative (Negative); Leukocyte Esterase,Urine Moderate (Negative); Mucus,Urine Few per lpf (None-Few); Nitrite,Urine Negative (Negative); Protein,Urine 70 mg/dL (Neg-Trace); Specific Gravity,Urine > 1.030 (1.010-1.025); Squamous Epithelial Cell,Urine Many per hpf (None-Few); Transitional Epi Cells,Urine Moderate per hpf (None-Few); WBC,Urine 30-50 per hpf (0-3)
[2021-12-26 17:57] LABS: Influenza A PCR Negative (Negative); Influenza B PCR Negative (Negative); Resp. Syncytial Virus PCR Negative (Negative); SARS-CoV-2 by PCR (In House) Negative (Negative)
[2021-12-26] MEDS ORDERED: Naloxone 0.4 MG/ML INJ IVP PRN (20:59)
[2021-12-26] MEDS ORDERED: Melatonin 3 MG TABLET PO PRN (20:59)
[2021-12-26] MEDS ORDERED: Ondansetron ODT 4 MG TAB.RAPDIS SL PRN (20:59)
[2021-12-26] MEDS ORDERED: Cefepime HCl 1,000 MG in 0.9 % Sodium Chloride Mini Bag 100 ML IVPB ONE (21:00)
[2021-12-26] MEDS ORDERED: Ringers Solution, Lactated 1,000 ML IVC SCH (21:15)
[2021-12-26] MEDS: Ringers Solution, Lactated 1,000 ML IVC SCH (22:20)
[2021-12-27 04:47] LABS: Hematocrit 42.9 % (35.3-44.9); Mean Corpuscular HGB Conc 32.2 g/dL (31.6-35.5); Mean Corpuscular Hemoglobin 26.5 pg (28.0-33.3); Mean Corpuscular Volume 82.3 fL (83.0-100.0); Platelet Count 302 K/mcL (140-400); Red Blood Count 5.21 M/mcL (3.82-4.97); Red Cell Distribution Width 15.3 % (11.5-14.5); White Blood Count 5.6 K/mcL (4.3-11.1)
[2021-12-27 05:00] LABS: Hemoglobin 13.8 g/dL (11.5-15.4)
[2021-12-27] MEDS: Ringers Solution, Lactated 1,000 ML IVC SCH (05:00)
[2021-12-27 05:08] LABS: Albumin 3.7 g/dL (3.5-5.7); Albumin/Globulin Ratio 1.4 (1.1-2.2); Bilirubin,Total 0.9 mg/dL (0.3-1.0); Calcium 8.8 mg/dL (8.6-10.3); Globulin 2.7 g/dL (2.4-3.5); Magnesium 1.8 mg/dL (1.6-2.6); Phosphorous 3.4 mg/dL (2.7-4.5); Potassium 3.7 mEq/L (3.5-5.1); Total Protein 6.4 g/dL (6.4-8.9)
[2021-12-27] MEDS ORDERED: *HR* Heparin 5,000 UNIT/ML VIAL SQ SCH (06:00)
[2021-12-27] MEDS: cefTRIAXone 1,000 MG in 0.9 % Sodium Chloride 10 ML IVP SCH (07:54)
[2021-12-27] MEDS: Famotidine 20 MG TABLET PO SCH ×2 (07:54→21:38)
[2021-12-27] MEDS ORDERED: Methylnaltrexone 12 MG/0.6 ML SYRINGE SQ ONE (09:30)
[2021-12-27] MEDS ORDERED: Morphine Sulfate 2 MG/ML SYRINGE IVP PRN (09:46)
[2021-12-27] MEDS: Ondansetron 4 MG/2 ML VIAL IVP PRN (10:20)
[2021-12-27] MEDS ORDERED: Budesonide/Formoterol 80/4.5 1 PUFF INH IH PRN (15:19)
[2021-12-27] MEDS: Ketorolac 30 MG/ML VIAL IVP PRN ×2 (16:25→23:29)
[2021-12-27] MEDS: LUBIPROSTONE 8 MCG PO SCH (21:40)
[2021-12-27] MEDS: *HR* OxyCODONE/APAP 7.5/325 TABLET PO PRN (21:43)
[2021-12-28 04:46] LABS: Hematocrit 43.8 % (35.3-44.9); Hemoglobin 13.8 g/dL (11.5-15.4); Mean Corpuscular HGB Conc 31.5 g/dL (31.6-35.5); Mean Corpuscular Hemoglobin 26.6 pg (28.0-33.3); Mean Corpuscular Volume 84.4 fL (83.0-100.0); Mean Platelet Volume 9.5 fL (9.4-12.4); Platelet Count 364 K/mcL (140-400); Red Blood Count 5.19 M/mcL (3.82-4.97); Red Cell Distribution Width 15.3 % (11.5-14.5); White Blood Count 4.9 K/mcL (4.3-11.1)
[2021-12-28 05:11] LABS: BUN/Creatinine Ratio 36 (6-26); Blood Urea Nitrogen 23 mg/dL (8-23); Calcium 8.9 mg/dL (8.6-10.3); Carbon Dioxide 25 mEq/L (23-29); Chloride 100 mEq/L (98-107); Glucose 78 mg/dL (70-105); Osmolality,Calculated 285 (280-300); Sodium 136 mEq/L (136-145)
[2021-12-28] MEDS: Ketorolac 30 MG/ML VIAL IVP PRN ×2 (06:01→16:53)
[2021-12-28] MEDS: cefTRIAXone 1,000 MG in 0.9 % Sodium Chloride 10 ML IVP SCH (08:41)
[2021-12-28] MEDS: Famotidine 20 MG TABLET PO SCH ×2 (08:41→20:36)
[2021-12-28] MEDS: (Potassium 99 MG Tablet) PO SCH (09:04)
[2021-12-28] MEDS: ZINC GLUCONATE 10 MG PO SCH (09:04)
[2021-12-28] MEDS: LUBIPROSTONE 8 MCG PO SCH ×2 (09:05→21:08)
[2021-12-28] MEDS: Simethicone 80 MG TAB.CHEW PO PRN ×2 (09:06→20:37)
[2021-12-28] MEDS ORDERED: Methylnaltrexone 12 MG/0.6 ML SYRINGE SQ ONE (09:17)
[2021-12-28] MEDS: Hyoscyamine SL 0.125 MG TAB.SUBL SL PRN ×2 (10:04→20:37)
[2021-12-28] MEDS: *HR* OxyCODONE/APAP 7.5/325 TABLET PO PRN ×2 (10:04→20:37)
[2021-12-28] MEDS: Ondansetron 4 MG/2 ML VIAL IVP PRN ×2 (10:06→16:53)
[2021-12-28] MEDS: *HR* Enoxaparin 40 MG/0.4 ML SYRINGE SQ SCH (12:20)
[2021-12-28] MEDS: Magnesium Oxide 400 MG TABLET PO SCH (12:21)
[2021-12-28] MEDS: Cholecalciferol (D-3) 1,000 UNIT (25MCG) TABLET PO SCH (12:21)
[2021-12-28] MEDS: Ascorbic Acid 500 MG TABLET PO SCH (12:21)
[2021-12-28] MEDS: Lactobacillus 1 EACH CAP.SPRINK PO SCH (12:21)
[2021-12-28] MEDS ORDERED: LUBIPROSTONE 8 MCG PO SCH (18:45)
[2021-12-29] MEDS: *HR* OxyCODONE/APAP 7.5/325 TABLET PO PRN ×2 (02:46→10:09)
[2021-12-29] MEDS: Ondansetron 4 MG/2 ML VIAL IVP PRN (04:12)
[2021-12-29] MEDS: Ketorolac 30 MG/ML VIAL IVP PRN (04:12)
[2021-12-29] MEDS: Simethicone 80 MG TAB.CHEW PO PRN (04:20)
[2021-12-29] MEDS: *HR* Enoxaparin 40 MG/0.4 ML SYRINGE SQ SCH (06:27)
[2021-12-29 06:42] LABS: Hematocrit 41.1 % (35.3-44.9); Hemoglobin 13.2 g/dL (11.5-15.4); Mean Corpuscular HGB Conc 32.1 g/dL (31.6-35.5); Mean Corpuscular Hemoglobin 26.7 pg (28.0-33.3); Mean Corpuscular Volume 83.2 fL (83.0-100.0); Mean Platelet Volume 9.6 fL (9.4-12.4); Platelet Count 384 K/mcL (140-400); Red Blood Count 4.94 M/mcL (3.82-4.97); White Blood Count 5.7 K/mcL (4.3-11.1)
[2021-12-29 07:46] LABS: Calcium 8.6 mg/dL (8.6-10.3)
[2021-12-29] MEDS: LUBIPROSTONE 8 MCG PO SCH (09:17)
[2021-12-29] MEDS: (Potassium 99 MG Tablet) PO SCH (09:18)
[2021-12-29] MEDS: Ascorbic Acid 500 MG TABLET PO SCH (09:18)
[2021-12-29] MEDS: Lactobacillus 1 EACH CAP.SPRINK PO SCH (09:18)
[2021-12-29] MEDS: Famotidine 20 MG TABLET PO SCH (09:18)
[2021-12-29] MEDS: Magnesium Oxide 400 MG TABLET PO SCH (09:18)
[2021-12-29] MEDS: Cholecalciferol (D-3) 1,000 UNIT (25MCG) TABLET PO SCH (09:18)
[2021-12-29] MEDS: cefTRIAXone 1,000 MG in 0.9 % Sodium Chloride 10 ML IVP SCH (09:19)
[2021-12-29] MEDS: ZINC GLUCONATE 10 MG PO SCH (09:19)
[2021-12-29 11:19] VITALS: O2SAT 94
[2021-12-29 15:21] VITALS: BP 112/77; PULSE 92; TEMP 97.9
[2021-12-29] MEDS ORDERED: polyethylene glycoL 3350 17 GM POWD.PACK PO ONE (16:00)
[2021-12-29] MEDS ORDERED: Famotidine 20 MG TABLET PO SCH (21:00)
[2021-12-30] MEDS ORDERED: Zinc Sulfate 220 MG CAPSULE PO SCH (09:00)
== END 2021-12-29 18:30 | disposition home or self-care (01) ==
LOC: 3ANU 15:02 → EMEROOARM 15:02 → SUATTDRO 20:59 → 3ANU 21:50
PROVIDERS: ADMIT Student in an Organized Health Care Education/Training Program; ATTEND Internal Medicine